=== PATIENT | female | born 1970 | race Caucasian/White ===

== ENCOUNTER 2018-08-25 09:00 | Outpatient (RCR) | payer MEDICARE, MEDICAID, SELFPAY ==
[2018-08-11 09:31] VITALS: BP 101/67; PULSE 88; RESP 16; TEMP 37.6; BMI 20.2
--- NOTE | 2018-08-11 11:25 | PCM.WC.HP ---
(1) Ulcer of right lower extremity with fat layer exposed Status: Acute Current Visit: Yes Code(s): L97.912 - Non-pressure chronic ulcer of unspecified part of right lower leg with fat layer exposed (2) Spina bifida Status: Acute Current Visit: Yes Code(s): Q05.9 - Spina bifida, unspecified (3) Paraplegia Status: Acute Current Visit: Yes Code(s): G82.20 - Paraplegia, unspecified History of Present Illness Date of Service: 08/11/18 Chief Complaint: R lower extremity ulcer. History of Wound: Ms. Mcdaniel is a pleasent 47 year old with PMH as stated above who presents to the wound center witha 3 week history of R Lower extremity ulcer. Unsure about the origin however, it was notd by her child care giver about 3 weeks ago. She has been applying antibiotic ointment daily without significant improvement. She otherwise feels well. Past Medical History Allergies/Adverse Reactions: Allergies No Known Allergies Allergy (Verified 08/11/18 09:55) Home Medications: Ambulatory Orders Medication Instructions Recorded Escitalopram Oxalate [Lexapro] 10 mg PO DAILY 08/11/18 Loratadine [Claritin] 10 mg PO DAILY 08/11/18 Melatonin 2.5 mg PO 08/11/18 busPIRone [Buspar] 10 mg PO DAILY 08/11/18 Smoking Status: Never smoker Review of Systems Constitutional: Denies: Anorexia, Chills, Fever Eyes: Denies: Blurred vision, Pain HEENT: Denies: Difficulty Swallowing Cardiovascular: Denies: Chest Pain, Chest Tightness Respiratory: Denies: Cough, Hemoptysis Gastrointestinal: Denies: Abdominal Pain, Hematemesis, Vomiting Skin: Denies: Jaundice - Physical Exam Vital Signs Temp Pulse Resp BP 99.6 F H 88 16 101/67 08/11/18 09:31 08/11/18 09:31 08/11/18 09:31 08/11/18 09:31 General: Alert, Oriented x3, Cooperative, No apparent distress HEENT: Atraumatic Oral: Moist Mucosa Neck: Supple Lungs: Normal air movement Cardiovascular: Regular rate, Regular Rhythm Abdomen: Soft Extremities: No cyanosis Skin: Ulcer/ Wound Wound Measurements and Assessment WC - Nurse 1 - General Ulcer Measurement Start: 08/11/18 09:26 Freq: Status: Active Protocol: Activity Type Activity Date Activity User E-Sign Co-Sign Detail Recorded Client Recorded Date Recorded By Document 08/11/18 09:31 DL [id number] 08/11/18 09:50 DL 08/11/18 09:31 Wound Center Nurse 1 [Ulcer Assessment] #1 R Post LE -Current Size (cm) - Length 1 -Current Size (cm) - Width 1 -Current Size (cm) - Depth 0.7 -Total Square Cm 1 -Photo Taken Yes -Epithelialization Small 1-33% -Classification - Thickness Full Thickness without Exposed Support Structure -Exudate Amt Small (1-33%) -Exudate Type Serosanguineous -Wound Margin Distinct, Outline Attached -Granulation Amt Small (1-33%) -Granulation Quality Pale [place] -Necrosis Amt Small (1-33%) -Necrotic Tissue Type Adherent Slough -Structure Exposed N/A -Texture (Yudith-wound Skin Appearance) No Abnormality -Moisture (Yudith-wound Skin Appearance No Abnormality ) -Color (Yudith-wound Skin Appearance) No Abnormality -Temperature (Yudith-wound Skin No Abnormality Appearance) (Pt Warm) -Ulcer Cleansing Rinsed/ Irrigated with Saline -Foul Odor after Cleansing No -Anesthetic Used 4% Lidocaine Solution [Edema Assessment] -Right Calf (cm) 23.2 -Right Ankle (cm) 18.8 -Left Calf (cm) 20 -Left Ankle (cm) 19.8 WC - Nurse 2 - General Ulcer CM Notes Start: 08/11/18 09:26 Freq: Status: Active Protocol: Activity Type Activity Date Activity User E-Sign Co-Sign Detail Recorded Client Recorded Date Recorded By Document 08/11/18 10:09 MW [id number] 08/11/18 10:16 MW 08/11/18 10:09 Wound Center Nurse 2 [Procedure/Treatment] #1 R Post LE -Time 10:09 -Correct Patient Yes -Correct Side, Site, Position Yes -Correct Procedure Yes -Procedure Performed Yes -Type of Procedure Debridement -Clinical Debridement Subcutaneous -Post Debridement Size (cm) - Length 1.1 -Post Debridement Size (cm) - Width 1.1 -Post Debridement Size (cm) - Depth 0.7 -Total Square Cm 1.21 -Wound/Ulcer Outcome Not Healed -Ulcer Cleansing Rinsed/ Irrigated with Saline -Foul Odor after Cleansing No -Bioengineered Tissue No -Bleeding Controlled with Pressure -Treatment Response Procedure Tolerated Well [See Physician Procedure note for Specifics] Pain Scale: 0-10 Numeric [Pain] -Is Patient Pain Free? Yes Neurological: Cranial nerves II-XII grossly intact Psych/Mental Status: Normal Affect Debridement Note Post-Debridement Measurements/Treatment WC - Nurse 2 - General Ulcer CM Notes Start: 08/11/18 09:26 Freq: Status: Active Protocol: Activity Type Activity Date Activity User E-Sign Co-Sign Detail Recorded Client Recorded Date Recorded By Document 08/11/18 10:09 MW [id number] 08/11/18 10:16 MW 08/11/18 10:09 Wound Center Nurse 2 #1 R Post LE -Time 10:09 -Correct Patient Yes -Correct Side, Site, Position Yes -Correct Procedure Yes -Procedure Performed Yes -Type of Procedure Debridement -Clinical Debridement Subcutaneous -Post Debridement Size (cm) - Length 1.1 -Post Debridement Size (cm) - Width 1.1 -Post Debridement Size (cm) - Depth 0.7 -Total Square Cm 1.21 -Wound/Ulcer Outcome Not Healed -Ulcer Cleansing Rinsed/ Irrigated with Saline -Foul Odor after Cleansing No -Bioengineered Tissue No -Bleeding Controlled with Pressure -Treatment Response Procedure Tolerated Well Pain Scale: 0-10 Numeric Is Patient Pain Free? Yes Wound debrided: Right lower extremity ( Posterior ) Wound Grade/Stage: Stage II Type of Debridement: Excisional debridement Anesthesia Used: 4% Lidocaine Solution Depth: Down to and including healthy tissue, in the subcutaneous layer Percentage of wound debrided: 100 Instrument Used: 3mm curette Tissue Removed: Slough and devitalized tissue Severity: Fat Layer Exposed Amount of bleeding with debridement: Mild Bleeding Controlled with: Pressure Patient tolerated procedure well Assessment/Plan Active Problems Spina bifida (Acute) Ulcer of right lower extremity with fat layer exposed (Acute) Paraplegia (Acute) Assessment: Right lower extremity ulcer with fat layer exposed, poor healing. Plan: Debridement done as documenetd above, procedure was well tolerated. Cultures taken and blood work also ordered including preablbumin. Pomogran daily with adaptic over top. Increased protein intake recommended. All her questions were answered and she was advised to call with any further concerns. Follow up in 1 week.
--- NOTE | 2018-08-11 11:28 | HP.PCM_ITS ---
(1) Ulcer of right lower extremity with fat layer exposed Status: Acute Current Visit: Yes Code(s): L97.912 - Non-pressure chronic ulcer of unspecified part of right lower leg with fat layer exposed (2) Spina bifida Status: Acute Current Visit: Yes Code(s): Q05.9 - Spina bifida, unspecified (3) Paraplegia Status: Acute Current Visit: Yes Code(s): G82.20 - Paraplegia, unspecified History of Present Illness Date of Service: 08/11/18 Chief Complaint: R lower extremity ulcer. History of Wound: Ms. Mcdaniel is a pleasent 47 year old with PMH as stated above who presents to the wound center witha 3 week history of R Lower extremity ulcer. Unsure about the origin however, it was notd by her physician assistant primary care about 3 weeks ago. She has been applying antibiotic ointment daily without significant improvement. She otherwise feels well. Past Medical History Allergies/Adverse Reactions: Allergies No Known Allergies Allergy (Verified 08/11/18 09:55) Home Medications: Ambulatory Orders Medication Instructions Recorded Escitalopram Oxalate [Lexapro] 10 mg PO DAILY 08/11/18 Loratadine [Claritin] 10 mg PO DAILY 08/11/18 Melatonin 2.5 mg PO 08/11/18 busPIRone [Buspar] 10 mg PO DAILY 08/11/18 Smoking Status: Never smoker Review of Systems Constitutional: Denies: Anorexia, Chills, Fever Eyes: Denies: Blurred vision, Pain HEENT: Denies: Difficulty Swallowing Cardiovascular: Denies: Chest Pain, Chest Tightness Respiratory: Denies: Cough, Hemoptysis Gastrointestinal: Denies: Abdominal Pain, Hematemesis, Vomiting Skin: Denies: Jaundice - Physical Exam Vital Signs Temp Pulse Resp BP 99.6 F H 88 16 101/67 08/11/18 09:31 08/11/18 09:31 08/11/18 09:31 08/11/18 09:31 General: Alert, Oriented x3, Cooperative, No apparent distress HEENT: Atraumatic Oral: Moist Mucosa Neck: Supple Lungs: Normal air movement Cardiovascular: Regular rate, Regular Rhythm Abdomen: Soft Extremities: No cyanosis Skin: Ulcer/ Wound Wound Measurements and Assessment WC - Nurse 1 - General Ulcer Measurement Start: 08/11/18 09:26 Freq: Status: Active Protocol: Activity Type Activity Date Activity User E-Sign Co-Sign Detail Recorded Client Recorded Date Recorded By Document 08/11/18 09:31 DL [id number] 08/11/18 09:50 DL 08/11/18 09:31 Wound Center Nurse 1 [Ulcer Assessment] #1 R Post LE -Current Size (cm) - Length 1 -Current Size (cm) - Width 1 -Current Size (cm) - Depth 0.7 -Total Square Cm 1 -Photo Taken Yes -Epithelialization Small 1-33% -Classification - Thickness Full Thickness without Exposed Support Structure -Exudate Amt Small (1-33%) -Exudate Type Serosanguineous -Wound Margin Distinct, Outline Attached -Granulation Amt Small (1-33%) -Granulation Quality Pale [place] -Necrosis Amt Small (1-33%) -Necrotic Tissue Type Adherent Slough -Structure Exposed N/A -Texture (Yudith-wound Skin Appearance) No Abnormality -Moisture (Yudith-wound Skin Appearance No Abnormality ) -Color (Yudith-wound Skin Appearance) No Abnormality -Temperature (Yudith-wound Skin No Abnormality Appearance) (Pt Warm) -Ulcer Cleansing Rinsed/ Irrigated with Saline -Foul Odor after Cleansing No -Anesthetic Used 4% Lidocaine Solution [Edema Assessment] -Right Calf (cm) 23.2 -Right Ankle (cm) 18.8 -Left Calf (cm) 20 -Left Ankle (cm) 19.8 WC - Nurse 2 - General Ulcer CM Notes Start: 08/11/18 09:26 Freq: Status: Active Protocol: Activity Type Activity Date Activity User E-Sign Co-Sign Detail Recorded Client Recorded Date Recorded By Document 08/11/18 10:09 MW [id number] 08/11/18 10:16 MW 08/11/18 10:09 Wound Center Nurse 2 [Procedure/Treatment] #1 R Post LE -Time 10:09 -Correct Patient Yes -Correct Side, Site, Position Yes -Correct Procedure Yes -Procedure Performed Yes -Type of Procedure Debridement -Clinical Debridement Subcutaneous -Post Debridement Size (cm) - Length 1.1 -Post Debridement Size (cm) - Width 1.1 -Post Debridement Size (cm) - Depth 0.7 -Total Square Cm 1.21 -Wound/Ulcer Outcome Not Healed -Ulcer Cleansing Rinsed/ Irrigated with Saline -Foul Odor after Cleansing No -Bioengineered Tissue No -Bleeding Controlled with Pressure -Treatment Response Procedure Tolerated Well [See Physician Procedure note for Specifics] Pain Scale: 0-10 Numeric [Pain] -Is Patient Pain Free? Yes Neurological: Cranial nerves II-XII grossly intact Psych/Mental Status: Normal Affect Debridement Note Post-Debridement Measurements/Treatment WC - Nurse 2 - General Ulcer CM Notes Start: 08/11/18 09:26 Freq: Status: Active Protocol: Activity Type Activity Date Activity User E-Sign Co-Sign Detail Recorded Client Recorded Date Recorded By Document 08/11/18 10:09 MW [id number] 08/11/18 10:16 MW 08/11/18 10:09 Wound Center Nurse 2 #1 R Post LE -Time 10:09 -Correct Patient Yes -Correct Side, Site, Position Yes -Correct Procedure Yes -Procedure Performed Yes -Type of Procedure Debridement -Clinical Debridement Subcutaneous -Post Debridement Size (cm) - Length 1.1 -Post Debridement Size (cm) - Width 1.1 -Post Debridement Size (cm) - Depth 0.7 -Total Square Cm 1.21 -Wound/Ulcer Outcome Not Healed -Ulcer Cleansing Rinsed/ Irrigated with Saline -Foul Odor after Cleansing No -Bioengineered Tissue No -Bleeding Controlled with Pressure -Treatment Response Procedure Tolerated Well Pain Scale: 0-10 Numeric Is Patient Pain Free? Yes Wound debrided: Right lower extremity ( Posterior ) Wound Grade/Stage: Stage II Type of Debridement: Excisional debridement Anesthesia Used: 4% Lidocaine Solution Depth: Down to and including healthy tissue, in the subcutaneous layer Percentage of wound debrided: 100 Instrument Used: 3mm curette Tissue Removed: Slough and devitalized tissue Severity: Fat Layer Exposed Amount of bleeding with debridement: Mild Bleeding Controlled with: Pressure Patient tolerated procedure well Assessment/Plan Active Problems Spina bifida (Acute) Ulcer of right lower extremity with fat layer exposed (Acute) Paraplegia (Acute) Assessment: Right lower extremity ulcer with fat layer exposed, poor healing. Plan: Debridement done as documenetd above, procedure was well tolerated. Cultures taken and blood work also ordered including preablbumin. Pomogran daily with adaptic over top. Increased protein intake recommended. All her questions were answered and she was advised to call with any further concerns. Follow up in 1 week.
[2018-08-11 11:32] LABS: Absolute Lymphocyte Count 1.28 X10^3/ul (0.83-4.51); Absolute Neutrophil Count 4.8 X10^3/uL (2.0-7.7); Basophil# 0.04 X10^3/uL; Basophil% 0.6 % (0-1); Eosinophil# 0.17 X10^3/uL; Eosinophils% 2.6 % (0-5); Hematocrit 46.6 % (37-47); Hemoglobin 15.1 g/dl (12.0-15.0); Lymphocyte # 1.28 X10^3/ul (4.0); Lymphocyte % 19.2 % (19-41); Mean Corp Hgb Conc 32.4 g/gl (32-36); Mean Corpuscular Volume 92.6 fL (81-99); Mean Platelet Vol. 9.1 fl (6.2-12.0); Monocyte# 0.41 X10^3/uL; Monocyte% 6.2 % (0-10); Neutrophil # 4.75 X10^3/uL (2.7-7.7); Neutrophil % 71.2 % (47-70); Platelet Count 286 K/mm3 (150-450); RBC Distribution Width CV 12.7 % (11.6-14.6); RBC Distribution Width SD 42.4 fl (35.1-43.9); Red Blood Count 5.03 M/mm3 (4.2-5.4); White Blood Count 6.7 K/mm3 (4.4-11.0)
[2018-08-11 11:33] LABS: POSITIVE COUNT NO; POSITIVE DIFFERENTIAL NO; POSITIVE MORPHOLOGY NO
[2018-08-11 12:09] LABS: AST(SGOT) 14 U/L (15-37); Alanine Aminotransfer ALT/SGPT 21 U/L (13-56); Albumin, Serum 3.9 g/dL (3.2-5.0); Alkaline Phosphatase 67 U/L (45-117); Anion Gap 9 (5-15); BUN 11 mg/dL (7-18); Calcium,Total 9.3 mg/dL (8.5-10.1); Chloride 107 mmol/L (98-107); Creatinine, Serum 0.46 mg/dL (0.55-1.02); EST Glomerular Filtration Rate 155 mL/min (>60); Est Glom Filt Rate - Afr Amer 188 mL/min (>60); Estimated Creatinine Clearance 98.94 ml/min; Glucose 73 mg/dL (74-106); Prealbumin 21.1 mg/dL (20.0-40.0); Protein, Total 7.9 g/dL (6.4-8.2); Sodium Level 144 mmol/L (136-145)
[2018-08-25 09:00] VITALS: BP 117/76; PULSE 100; RESP 16; TEMP 36.9; BMI 20.2
--- NOTE | 2018-08-25 09:47 | PCM.WC.PN ---
(1) Ulcer of right lower extremity with fat layer exposed Status: Acute Current Visit: Yes Code(s): L97.912 - Non-pressure chronic ulcer of unspecified part of right lower leg with fat layer exposed (2) Spina bifida Status: Acute Current Visit: Yes Code(s): Q05.9 - Spina bifida, unspecified (3) Paraplegia Status: Acute Current Visit: Yes Code(s): G82.20 - Paraplegia, unspecified Type of Wound Chief Complaint: R lower extremity ulcer. History of Wound: Ms. Mcdaniel is a pleasent 47 year old with PMH as stated above who presents to the wound center witha 3 week history of R Lower extremity ulcer. Unsure about the origin however, it was notd by her home visit field care manager about 3 weeks ago. She has been applying antibiotic ointment daily without significant improvement. She otherwise feels well. Progress of Wound: Stable. No new complaints at this time. - Physical Exam Vital Signs Temp Pulse Resp BP 98.4 F 100 16 117/76 08/25/18 09:00 08/25/18 09:00 08/25/18 09:00 08/25/18 09:00 General: Alert, Oriented x3, Cooperative, No apparent distress HEENT: Atraumatic Oral: Moist Mucosa Neck: Supple Lungs: Normal air movement Abdomen: Soft Extremities: No cyanosis Skin: Ulcer/ Wound Wound Measurements and Assessment WC - Nurse 1 - General Ulcer Measurement Start: 08/11/18 09:26 Freq: Status: Active Protocol: Activity Type Activity Date Activity User E-Sign Co-Sign Detail Recorded Client Recorded Date Recorded By Document 08/25/18 09:00 GRIFFIN [id number] 08/25/18 09:12 GRIFFIN 08/25/18 09:00 Wound Center Nurse 1 [Ulcer Assessment] #1 R Post LE -Combined with other wound No -Current Size (cm) - Length 0.8 -Current Size (cm) - Width 0.9 -Current Size (cm) - Depth 0.7 -Total Square Cm 0.72 -Date of Last Picture (Recall this 08/11/18 field) -Photo Taken No -Epithelialization None Present -Tunneling No -Undermining/Tunneling No -Circular Undermining No -Classification - Thickness Full Thickness without Exposed Support Structure -Exudate Amt Small (1-33%) -Exudate Type Serous -Wound Margin Distinct, Outline Attached -Granulation Amt None Present (0 %) -Granulation Quality N/A -Slough/Fibrin Yes -Necrosis Amt None Present (0 %) -Necrotic Tissue Type Adherent Slough -Structure Exposed None/Limited to Skin Breakdown -Texture (Yudith-wound Skin Appearance) No Abnormality -Moisture (Yudith-wound Skin Appearance No Abnormality ) -Color (Yudith-wound Skin Appearance) No Abnormality -Temperature (Yudith-wound Skin No Abnormality Appearance) (Pt Warm) -Tenderness on Palpation (Yudith-wound No Skin Appearance) -Ulcer Cleansing Rinsed/ Irrigated with Saline -Foul Odor after Cleansing No WC - Nurse 2 - General Ulcer CM Notes Start: 08/11/18 09:26 Freq: Status: Active Protocol: Activity Type Activity Date Activity User E-Sign Co-Sign Detail Recorded Client Recorded Date Recorded By Document 08/25/18 09:40 MW [id number] 08/25/18 09:41 MW 08/25/18 09:40 Wound Center Nurse 2 [Procedure/Treatment] -Time 09:40 -Correct Patient Yes -Correct Side, Site, Position Yes -Correct Procedure Yes -Procedure Performed Yes -Type of Procedure Debridement -Clinical Debridement Subcutaneous -Post Debridement Size (cm) - Length 0.8 -Post Debridement Size (cm) - Width 1.3 -Post Debridement Size (cm) - Depth 0.6 -Total Square Cm 1.04 -Wound/Ulcer Outcome Not Healed -Ulcer Cleansing Rinsed/ Irrigated with Saline -Foul Odor after Cleansing No -Bioengineered Tissue No -Bleeding Controlled with Pressure -Treatment Response Procedure Tolerated Well [See Physician Procedure note for Specifics] Pain Scale: 0-10 Numeric [Pain] -Is Patient Pain Free? Yes Musculoskeletal: No Muscle Wasting Neurological: Cranial nerves II-XII grossly intact Psych/Mental Status: Normal Affect Debridement Note Post-Debridement Measurements/Treatment WC - Nurse 2 - General Ulcer CM Notes Start: 08/11/18 09:26 Freq: Status: Active Protocol: Activity Type Activity Date Activity User E-Sign Co-Sign Detail Recorded Client Recorded Date Recorded By Document 08/11/18 10:09 MW [id number] 08/11/18 10:16 MW Document 08/25/18 09:40 MW [id number] 08/25/18 09:41 MW 08/11/18 08/25/18 10:09 09:40 Wound Center Nurse 2 #1 R Post LE -Time 10:09 09:40 -Correct Patient Yes Yes -Correct Side, Site, Position Yes Yes -Correct Procedure Yes Yes -Procedure Performed Yes Yes -Type of Procedure Debridement Debridement -Clinical Debridement Subcutaneous Subcutaneous -Post Debridement Size (cm) - Length 1.1 0.8 -Post Debridement Size (cm) - Width 1.1 1.3 -Post Debridement Size (cm) - Depth 0.7 0.6 -Total Square Cm 1.21 1.04 -Wound/Ulcer Outcome Not Healed Not Healed -Ulcer Cleansing Rinsed/ Rinsed/ Irrigated with Irrigated with Saline Saline -Foul Odor after Cleansing No No -Bioengineered Tissue No No -Bleeding Controlled with Pressure Pressure -Treatment Response Procedure Procedure Tolerated Well Tolerated Well Pain Scale: 0-10 Numeric Is Patient Pain Free? Yes Yes Wound debrided: Right lower extremity ( Posterior ) Wound Grade/Stage: Stage II Type of Debridement: Excisional debridement Anesthesia Used: 4% Lidocaine Solution Depth: Down to and including healthy tissue, in the subcutaneous layer Percentage of wound debrided: 100 Instrument Used: 3mm curette Tissue Removed: Slough and devitalized tissue Severity: Fat Layer Exposed Amount of bleeding with debridement: Mild Bleeding Controlled with: Pressure Patient tolerated procedure well Assessment/Plan Active Problems Spina bifida (Acute) Ulcer of right lower extremity with fat layer exposed (Acute) Paraplegia (Acute) Assessment: Right lower extremity ulcer with fat layer exposed, poor healing. Plan: Some improvement noted. No new complaints. Debridement done as documenetd above, procedure was well tolerated. Continue pomogran daily with adaptic over top. Increased protein intake recommended. Prealbumin borderline. All her questions were answered and she was advised to call with any further concerns. Follow up in 1 week.
--- NOTE | 2018-08-25 09:52 | PN.PCM_ITS ---
(1) Ulcer of right lower extremity with fat layer exposed Status: Acute Current Visit: Yes Code(s): L97.912 - Non-pressure chronic ulcer of unspecified part of right lower leg with fat layer exposed (2) Spina bifida Status: Acute Current Visit: Yes Code(s): Q05.9 - Spina bifida, unspecified (3) Paraplegia Status: Acute Current Visit: Yes Code(s): G82.20 - Paraplegia, unspecified Type of Wound Chief Complaint: R lower extremity ulcer. History of Wound: Ms. Mcdaniel is a pleasent 47 year old with PMH as stated above who presents to the wound center witha 3 week history of R Lower extremity ulcer. Unsure about the origin however, it was notd by her nursing care attendant about 3 weeks ago. She has been applying antibiotic ointment daily without significant improvement. She otherwise feels well. Progress of Wound: Stable. No new complaints at this time. - Physical Exam Vital Signs Temp Pulse Resp BP 98.4 F 100 16 117/76 08/25/18 09:00 08/25/18 09:00 08/25/18 09:00 08/25/18 09:00 General: Alert, Oriented x3, Cooperative, No apparent distress HEENT: Atraumatic Oral: Moist Mucosa Neck: Supple Lungs: Normal air movement Abdomen: Soft Extremities: No cyanosis Skin: Ulcer/ Wound Wound Measurements and Assessment WC - Nurse 1 - General Ulcer Measurement Start: 08/11/18 09:26 Freq: Status: Active Protocol: Activity Type Activity Date Activity User E-Sign Co-Sign Detail Recorded Client Recorded Date Recorded By Document 08/25/18 09:00 GRIFFIN [id number] 08/25/18 09:12 GRIFFIN 08/25/18 09:00 Wound Center Nurse 1 [Ulcer Assessment] #1 R Post LE -Combined with other wound No -Current Size (cm) - Length 0.8 -Current Size (cm) - Width 0.9 -Current Size (cm) - Depth 0.7 -Total Square Cm 0.72 -Date of Last Picture (Recall this 08/11/18 field) -Photo Taken No -Epithelialization None Present -Tunneling No -Undermining/Tunneling No -Circular Undermining No -Classification - Thickness Full Thickness without Exposed Support Structure -Exudate Amt Small (1-33%) -Exudate Type Serous -Wound Margin Distinct, Outline Attached -Granulation Amt None Present (0 %) -Granulation Quality N/A -Slough/Fibrin Yes -Necrosis Amt None Present (0 %) -Necrotic Tissue Type Adherent Slough -Structure Exposed None/Limited to Skin Breakdown -Texture (Yudith-wound Skin Appearance) No Abnormality -Moisture (Yudith-wound Skin Appearance No Abnormality ) -Color (Yudith-wound Skin Appearance) No Abnormality -Temperature (Yudith-wound Skin No Abnormality Appearance) (Pt Warm) -Tenderness on Palpation (Yudith-wound No Skin Appearance) -Ulcer Cleansing Rinsed/ Irrigated with Saline -Foul Odor after Cleansing No WC - Nurse 2 - General Ulcer CM Notes Start: 08/11/18 09:26 Freq: Status: Active Protocol: Activity Type Activity Date Activity User E-Sign Co-Sign Detail Recorded Client Recorded Date Recorded By Document 08/25/18 09:40 MW [id number] 08/25/18 09:41 MW 08/25/18 09:40 Wound Center Nurse 2 [Procedure/Treatment] -Time 09:40 -Correct Patient Yes -Correct Side, Site, Position Yes -Correct Procedure Yes -Procedure Performed Yes -Type of Procedure Debridement -Clinical Debridement Subcutaneous -Post Debridement Size (cm) - Length 0.8 -Post Debridement Size (cm) - Width 1.3 -Post Debridement Size (cm) - Depth 0.6 -Total Square Cm 1.04 -Wound/Ulcer Outcome Not Healed -Ulcer Cleansing Rinsed/ Irrigated with Saline -Foul Odor after Cleansing No -Bioengineered Tissue No -Bleeding Controlled with Pressure -Treatment Response Procedure Tolerated Well [See Physician Procedure note for Specifics] Pain Scale: 0-10 Numeric [Pain] -Is Patient Pain Free? Yes Musculoskeletal: No Muscle Wasting Neurological: Cranial nerves II-XII grossly intact Psych/Mental Status: Normal Affect Debridement Note Post-Debridement Measurements/Treatment WC - Nurse 2 - General Ulcer CM Notes Start: 08/11/18 09:26 Freq: Status: Active Protocol: Activity Type Activity Date Activity User E-Sign Co-Sign Detail Recorded Client Recorded Date Recorded By Document 08/11/18 10:09 MW [id number] 08/11/18 10:16 MW Document 08/25/18 09:40 MW [id number] 08/25/18 09:41 MW 08/11/18 08/25/18 10:09 09:40 Wound Center Nurse 2 #1 R Post LE -Time 10:09 09:40 -Correct Patient Yes Yes -Correct Side, Site, Position Yes Yes -Correct Procedure Yes Yes -Procedure Performed Yes Yes -Type of Procedure Debridement Debridement -Clinical Debridement Subcutaneous Subcutaneous -Post Debridement Size (cm) - Length 1.1 0.8 -Post Debridement Size (cm) - Width 1.1 1.3 -Post Debridement Size (cm) - Depth 0.7 0.6 -Total Square Cm 1.21 1.04 -Wound/Ulcer Outcome Not Healed Not Healed -Ulcer Cleansing Rinsed/ Rinsed/ Irrigated with Irrigated with Saline Saline -Foul Odor after Cleansing No No -Bioengineered Tissue No No -Bleeding Controlled with Pressure Pressure -Treatment Response Procedure Procedure Tolerated Well Tolerated Well Pain Scale: 0-10 Numeric Is Patient Pain Free? Yes Yes Wound debrided: Right lower extremity ( Posterior ) Wound Grade/Stage: Stage II Type of Debridement: Excisional debridement Anesthesia Used: 4% Lidocaine Solution Depth: Down to and including healthy tissue, in the subcutaneous layer Percentage of wound debrided: 100 Instrument Used: 3mm curette Tissue Removed: Slough and devitalized tissue Severity: Fat Layer Exposed Amount of bleeding with debridement: Mild Bleeding Controlled with: Pressure Patient tolerated procedure well Assessment/Plan Active Problems Spina bifida (Acute) Ulcer of right lower extremity with fat layer exposed (Acute) Paraplegia (Acute) Assessment: Right lower extremity ulcer with fat layer exposed, poor healing. Plan: Some improvement noted. No new complaints. Debridement done as documenetd above, procedure was well tolerated. Continue pomogran daily with adaptic over top. Increased protein intake recommended. Prealbumin borderline. All her questions were answered and she was advised to call with any further concerns. Follow up in 1 week.
== END 2018-08-28 23:59 ==
LOC: WC 09:00
PROVIDERS: Family Provider Family Medicine; PCP Family Medicine; Visit Provider Internal Medicine
DX: L97.812 Non-pressure chronic ulcer of other part of right lower leg with fat layer exposed (principal); Q05.9 Spina bifida, unspecified; G82.20 Paraplegia, unspecified; Z79.899 Other long term (current) drug therapy
CPT/HCPCS: 11042; 36415; 80053; 84134; 85025; 99203; G0463

== ENCOUNTER 2018-09-28 09:30 | Outpatient (RCR) | payer MEDICAID, SELFPAY ==
[2018-08-29 01:32] VITALS: BP 117/76; PULSE 100; RESP 16; TEMP 36.9
[2018-08-31 11:41] VITALS: BP 125/66; PULSE 89; RESP 16; TEMP 36.6
--- NOTE | 2018-08-31 13:06 | PN.PCM_ITS ---
(1) Ulcer of right lower extremity with fat layer exposed Status: Chronic Current Visit: Yes Code(s): L97.912 - Non-pressure chronic ulcer of unspecified part of right lower leg with fat layer exposed (2) Paraplegia Status: Acute Current Visit: No Code(s): G82.20 - Paraplegia, unspecified (3) Spina bifida Status: Acute Current Visit: No Code(s): Q05.9 - Spina bifida, unspecified Type of Wound Chief Complaint: R lower extremity ulcer. History of Wound: Ms. Mcdaniel is a pleasent 47 year old with PMH as stated above who presents to the wound center witha 3 week history of R Lower extremity ulcer. Unsure about the origin however, it was notd by her healthcare network consultant about 3 weeks ago. She has been applying antibiotic ointment daily without significant improvement. She otherwise feels well. Progress of Wound: Stable. No new complaints at this time. - Physical Exam Vital Signs Temp Pulse Resp BP 98 F 89 16 125/66 H 08/31/18 11:41 08/31/18 11:41 08/31/18 11:41 08/31/18 11:41 General: Alert, Oriented x3, Cooperative, No apparent distress HEENT: Atraumatic Oral: Moist Mucosa Neck: Supple Lungs: Normal air movement Abdomen: Non Tender Extremities: No cyanosis Skin: Ulcer/ Wound Wound Measurements and Assessment WC - Nurse 1 - General Ulcer Measurement Start: 08/31/18 11:41 Freq: Status: Active Protocol: Activity Type Activity Date Activity User E-Sign Co-Sign Detail Recorded Client Recorded Date Recorded By Document 08/31/18 11:41 DL [id number] 08/31/18 11:50 DL 08/31/18 11:41 Wound Center Nurse 1 [Ulcer Assessment] #1 R Post LE -Current Size (cm) - Length 1 -Current Size (cm) - Width 1 -Current Size (cm) - Depth 0.5 -Total Square Cm 1 -Photo Taken No -Undermining/Tunneling Starts (O' 12 clock) -Undermining/Tunneling Ends (O'clock) 6 -Maximum Distance (cm) 0.2 -Exudate Amt Small (1-33%) -Exudate Type Serosanguineous -Wound Margin Distinct, Outline Attached -Granulation Amt Small (1-33%) -Granulation Quality [place] -Necrosis Amt Large (67-100%) -Necrotic Tissue Type Adherent Slough -Structure Exposed N/A -Texture (Yudith-wound Skin Appearance) No Abnormality -Moisture (Yudith-wound Skin Appearance No Abnormality ) -Color (Yudtih-wound Skin Appearance) Erythema Rubor -Temperature (Yudith-wound Skin No Abnormality Appearance) (Pt Warm) -Ulcer Cleansing Rinsed/ Irrigated with Saline -Foul Odor after Cleansing No -Anesthetic Used 4% Lidocaine Solution - Nurse 2 - General Ulcer CM Notes Start: 08/31/18 11:41 Freq: Status: Active Protocol: Activity Type Activity Date Activity User E-Sign Co-Sign Detail Recorded Client Recorded Date Recorded By Document 08/31/18 11:56 MW [id number] 08/31/18 11:59 MW 08/31/18 11:56 Wound Center Nurse 2 [Procedure/Treatment] -Time 11:56 -Correct Patient Yes -Correct Side, Site, Position Yes -Correct Procedure Yes -Procedure Performed Yes -Type of Procedure Debridement -Clinical Debridement Subcutaneous -Post Debridement Size (cm) - Length 1.3 -Post Debridement Size (cm) - Width 0.9 -Post Debridement Size (cm) - Depth 0.5 -Total Square Cm 1.17 -Wound/Ulcer Outcome Not Healed -Ulcer Cleansing Rinsed/ Irrigated with Saline -Foul Odor after Cleansing No -Bioengineered Tissue No -Bleeding Controlled with Pressure -Treatment Response Procedure Tolerated Well [See Physician Procedure note for Specifics] Pain Scale: 0-10 Numeric [Pain] -Is Patient Pain Free? Yes Neurological: Cranial nerves II-XII grossly intact Psych/Mental Status: Normal Affect Debridement Note Post-Debridement Measurements/Treatment - Nurse 2 - General Ulcer CM Notes Start: 08/31/18 11:41 Freq: Status: Active Protocol: Activity Type Activity Date Activity User E-Sign Co-Sign Detail Recorded Client Recorded Date Recorded By Document 08/31/18 11:56 MW [id number] 08/31/18 11:59 MW 08/31/18 11:56 Wound Center Nurse 2 #1 R Post LE -Time 11:56 -Correct Patient Yes -Correct Side, Site, Position Yes -Correct Procedure Yes -Procedure Performed Yes -Type of Procedure Debridement -Clinical Debridement Subcutaneous -Post Debridement Size (cm) - Length 1.3 -Post Debridement Size (cm) - Width 0.9 -Post Debridement Size (cm) - Depth 0.5 -Total Square Cm 1.17 -Wound/Ulcer Outcome Not Healed -Ulcer Cleansing Rinsed/ Irrigated with Saline -Foul Odor after Cleansing No -Bioengineered Tissue No -Bleeding Controlled with Pressure -Treatment Response Procedure Tolerated Well Pain Scale: 0-10 Numeric Is Patient Pain Free? Yes Wound debrided: Right lower extremity Wound Grade/Stage: Stage II Type of Debridement: Excisional debridement Anesthesia Used: 4% Lidocaine Solution Depth: Down to and including healthy tissue, in the subcutaneous layer Percentage of wound debrided: 100 Instrument Used: 3mm curette Tissue Removed: Slough and devitalized tissue Severity: Fat Layer Exposed Amount of bleeding with debridement: Mild Bleeding Controlled with: Pressure Patient tolerated procedure well Assessment/Plan Active Problems Ulcer of right lower extremity with fat layer exposed (Chronic) Assessment: Right lower extremity ulcer with fat layer exposed, poor healing. Plan: Stable. No new complaints. Debridement done as documenetd above, procedure was well tolerated. Continue pomogran daily with adaptic over top. Increased protein intake recommended. Prealbumin borderline. All her questions were answered and she was advised to call with any further concerns. Follow up in 1 week. This note was generated with [employer] dictation software. It may contain incorrect words, spelling, and punctuation that were not noted in checking the note before signing.
[2018-09-08 09:13] VITALS: BP 103/71; PULSE 92; RESP 18; TEMP 36.6
--- NOTE | 2018-09-08 10:34 | PCM.WC.PN ---
(1) Ulcer of right lower extremity with fat layer exposed Status: Chronic Current Visit: Yes Code(s): L97.912 - Non-pressure chronic ulcer of unspecified part of right lower leg with fat layer exposed (2) Paraplegia Status: Acute Current Visit: No Code(s): G82.20 - Paraplegia, unspecified (3) Spina bifida Status: Acute Current Visit: No Code(s): Q05.9 - Spina bifida, unspecified Type of Wound Date of Service: 09/08/18 Chief Complaint: R lower extremity ulcer. History of Wound: Ms. Mcdaniel is a pleasent 47 year old with PMH as stated above who presents to the wound center witha 3 week history of R Lower extremity ulcer. Unsure about the origin however, it was notd by her anesthesiologist and critical care about 3 weeks ago. She has been applying antibiotic ointment daily without significant improvement. She otherwise feels well. Progress of Wound: Denies any complaints at this time. States that dressing has been done as recommended. They report no concerns. - Physical Exam Vital Signs Temp Pulse Resp BP 97.8 F 92 18 103/71 09/08/18 09:13 09/08/18 09:13 09/08/18 09:13 09/08/18 09:13 General: Alert, Oriented x3, Cooperative, No apparent distress HEENT: Atraumatic Oral: Moist Mucosa Neck: Supple Lungs: Normal air movement Extremities: No edema Skin: Ulcer/ Wound Wound Measurements and Assessment WC - Nurse 1 - General Ulcer Measurement Start: 08/31/18 11:41 Freq: Status: Active Protocol: Activity Type Activity Date Activity User E-Sign Co-Sign Detail Recorded Client Recorded Date Recorded By Document 09/08/18 09:13 DL [id number] 09/08/18 09:18 DL 09/08/18 09:13 Wound Center Nurse 1 [Ulcer Assessment] #1 R Post LE -Current Size (cm) - Length 1 -Current Size (cm) - Width 1.2 -Current Size (cm) - Depth 0.4 -Total Square Cm 1.2 -Photo Taken No -Tunneling No -Undermining/Tunneling No -Circular Undermining No -Exudate Amt Small (1-33%) -Exudate Type Serosanguineous -Wound Margin Distinct, Outline Attached -Granulation Amt Small (1-33%) -Granulation [place] -Necrosis Amt Medium (34-66%) -Necrotic Tissue Type Eschar -Structure Exposed N/A -Texture (Yudith-wound Skin Appearance) Assessed -Moisture (Yudith-wound Skin Appearance Assessed ) -Color (Yudith-wound Skin Appearance) Assessed Erythema -Temperature (Yudith-wound Skin No Abnormality Appearance) (Pt Warm) -Tenderness on Palpation (Yudith-wound No Skin Appearance) -Ulcer Cleansing Rinsed/ Irrigated with Saline -Foul Odor after Cleansing No -Anesthetic Used 4% Lidocaine Solution - Nurse 2 - General Ulcer CM Notes Start: 08/31/18 11:41 Freq: Status: Active Protocol: Activity Type Activity Date Activity User E-Sign Co-Sign Detail Recorded Client Recorded Date Recorded By Document 09/08/18 10:04 MW [id number] 09/08/18 10:09 MW 09/08/18 10:04 Wound Center Nurse 2 [Procedure/Treatment] -Time 10:04 -Correct Patient Yes -Correct Side, Site, Position Yes -Correct Procedure Yes -Procedure Performed Yes -Type of Procedure Debridement -Clinical Debridement Subcutaneous -Post Debridement Size (cm) - Length 1.1 -Post Debridement Size (cm) - Width 1.3 -Post Debridement Size (cm) - Depth 0.5 -Total Square Cm 1.43 -Wound/Ulcer Outcome Not Healed -Ulcer Cleansing Rinsed/ Irrigated with Saline -Foul Odor after Cleansing No -Bioengineered Tissue No -Bleeding Controlled with Pressure -Treatment Response Procedure Tolerated Well [See Physician Procedure note for Specifics] Pain Scale: 0-10 Numeric [Pain] -Is Patient Pain Free? Yes Musculoskeletal: No Muscle Wasting Neurological: Cranial nerves II-XII grossly intact Psych/Mental Status: Normal Affect Debridement Note Post-Debridement Measurements/Treatment - Nurse 2 - General Ulcer CM Notes Start: 08/31/18 11:41 Freq: Status: Active Protocol: Activity Type Activity Date Activity User E-Sign Co-Sign Detail Recorded Client Recorded Date Recorded By Document 08/31/18 11:56 MW [id number] 08/31/18 11:59 MW Document 09/08/18 10:04 MW [id number] 09/08/18 10:09 MW 08/31/18 09/08/18 11:56 10:04 Wound Center Nurse 2 #1 R Post LE -Time 11:56 10:04 -Correct Patient Yes Yes -Correct Side, Site, Position Yes Yes -Correct Procedure Yes Yes -Procedure Performed Yes Yes -Type of Procedure Debridement Debridement -Clinical Debridement Subcutaneous Subcutaneous -Post Debridement Size (cm) - Length 1.3 1.1 -Post Debridement Size (cm) - Width 0.9 1.3 -Post Debridement Size (cm) - Depth 0.5 0.5 -Total Square Cm 1.17 1.43 -Wound/Ulcer Outcome Not Healed Not Healed -Ulcer Cleansing Rinsed/ Rinsed/ Irrigated with Irrigated with Saline Saline -Foul Odor after Cleansing No No -Bioengineered Tissue No No -Bleeding Controlled with Pressure Pressure -Treatment Response Procedure Procedure Tolerated Well Tolerated Well Pain Scale: 0-10 Numeric Is Patient Pain Free? Yes Yes Wound debrided: Right lower extremity Wound Grade/Stage: Stage III Type of Debridement: Excisional debridement Anesthesia Used: 4% Lidocaine Solution Depth: Down to and including healthy tissue, in the subcutaneous layer Percentage of wound debrided: 100 Instrument Used: 7mm curette Tissue Removed: Slough and devitalized tissue Severity: Fat Layer Exposed Amount of bleeding with debridement: Mild Bleeding Controlled with: Pressure Patient tolerated procedure well Assessment/Plan Active Problems Ulcer of right lower extremity with fat layer exposed (Chronic) Assessment: Right lower extremity ulcer with fat layer exposed, poor healing. Plan: There appears to be new periwound eschar formation. No significant improvement noted in the past week. No other obvious signs or concerns for infection. Debridement done as documented above, procedure was well-tolerated. Continue pomogran daily with adaptic over top. Also advised to apply Promogran over the surface of the wound/ulcer. Will get vascular studies. Increased protein intake recommended. Prealbumin borderline. All her questions were answered and she was advised to call with any further concerns. Follow up in 2 weeks with me and 1 week for a courtesy visit with Dr. English. This note was generated with [employer] dictation software. It may contain incorrect words, spelling, and punctuation that were not noted in checking the note before signing.
--- NOTE | 2018-09-08 10:37 | PN.PCM_ITS ---
(1) Ulcer of right lower extremity with fat layer exposed Status: Chronic Current Visit: Yes Code(s): L97.912 - Non-pressure chronic ulcer of unspecified part of right lower leg with fat layer exposed (2) Paraplegia Status: Acute Current Visit: No Code(s): G82.20 - Paraplegia, unspecified (3) Spina bifida Status: Acute Current Visit: No Code(s): Q05.9 - Spina bifida, unspecified Type of Wound Date of Service: 09/08/18 Chief Complaint: R lower extremity ulcer. History of Wound: Ms. Mcdaniel is a pleasent 47 year old with PMH as stated above who presents to the wound center witha 3 week history of R Lower extremity ulcer. Unsure about the origin however, it was notd by her plant care worker about 3 weeks ago. She has been applying antibiotic ointment daily without significant improvement. She otherwise feels well. Progress of Wound: Denies any complaints at this time. States that dressing has been done as recommended. They report no concerns. - Physical Exam Vital Signs Temp Pulse Resp BP 97.8 F 92 18 103/71 09/08/18 09:13 09/08/18 09:13 09/08/18 09:13 09/08/18 09:13 General: Alert, Oriented x3, Cooperative, No apparent distress HEENT: Atraumatic Oral: Moist Mucosa Neck: Supple Lungs: Normal air movement Extremities: No edema Skin: Ulcer/ Wound Wound Measurements and Assessment WC - Nurse 1 - General Ulcer Measurement Start: 08/31/18 11:41 Freq: Status: Active Protocol: Activity Type Activity Date Activity User E-Sign Co-Sign Detail Recorded Client Recorded Date Recorded By Document 09/08/18 09:13 DL [id number] 09/08/18 09:18 DL 09/08/18 09:13 Wound Center Nurse 1 [Ulcer Assessment] #1 R Post LE -Current Size (cm) - Length 1 -Current Size (cm) - Width 1.2 -Current Size (cm) - Depth 0.4 -Total Square Cm 1.2 -Photo Taken No -Tunneling No -Undermining/Tunneling No -Circular Undermining No -Exudate Amt Small (1-33%) -Exudate Type Serosanguineous -Wound Margin Distinct, Outline Attached -Granulation Amt Small (1-33%) -Granulation Quality [place] -Necrosis Amt Medium (34-66%) -Necrotic Tissue Type Eschar -Structure Exposed N/A -Texture (Yudith-wound Skin Appearance) Assessed -Moisture (Yudith-wound Skin Appearance Assessed ) -Color (Yudith-wound Skin Appearance) Assessed Erythema -Temperature (Yudith-wound Skin No Abnormality Appearance) (Pt Warm) -Tenderness on Palpation (Yudith-wound No Skin Appearance) -Ulcer Cleansing Rinsed/ Irrigated with Saline -Foul Odor after Cleansing No -Anesthetic Used 4% Lidocaine Solution - Nurse 2 - General Ulcer CM Notes Start: 08/31/18 11:41 Freq: Status: Active Protocol: Activity Type Activity Date Activity User E-Sign Co-Sign Detail Recorded Client Recorded Date Recorded By Document 09/08/18 10:04 MW [id number] 09/08/18 10:09 MW 09/08/18 10:04 Wound Center Nurse 2 [Procedure/Treatment] -Time 10:04 -Correct Patient Yes -Correct Side, Site, Position Yes -Correct Procedure Yes -Procedure Performed Yes -Type of Procedure Debridement -Clinical Debridement Subcutaneous -Post Debridement Size (cm) - Length 1.1 -Post Debridement Size (cm) - Width 1.3 -Post Debridement Size (cm) - Depth 0.5 -Total Square Cm 1.43 -Wound/Ulcer Outcome Not Healed -Ulcer Cleansing Rinsed/ Irrigated with Saline -Foul Odor after Cleansing No -Bioengineered Tissue No -Bleeding Controlled with Pressure -Treatment Response Procedure Tolerated Well [See Physician Procedure note for Specifics] Pain Scale: 0-10 Numeric [Pain] -Is Patient Pain Free? Yes Musculoskeletal: No Muscle Wasting Neurological: Cranial nerves II-XII grossly intact Psych/Mental Status: Normal Affect Debridement Note Post-Debridement Measurements/Treatment - Nurse 2 - General Ulcer CM Notes Start: 08/31/18 11:41 Freq: Status: Active Protocol: Activity Type Activity Date Activity User E-Sign Co-Sign Detail Recorded Client Recorded Date Recorded By Document 08/31/18 11:56 MW [id number] 08/31/18 11:59 MW Document 09/08/18 10:04 MW [id number] 09/08/18 10:09 MW 08/31/18 09/08/18 11:56 10:04 Wound Center Nurse 2 #1 R Post LE -Time 11:56 10:04 -Correct Patient Yes Yes -Correct Side, Site, Position Yes Yes -Correct Procedure Yes Yes -Procedure Performed Yes Yes -Type of Procedure Debridement Debridement -Clinical Debridement Subcutaneous Subcutaneous -Post Debridement Size (cm) - Length 1.3 1.1 -Post Debridement Size (cm) - Width 0.9 1.3 -Post Debridement Size (cm) - Depth 0.5 0.5 -Total Square Cm 1.17 1.43 -Wound/Ulcer Outcome Not Healed Not Healed -Ulcer Cleansing Rinsed/ Rinsed/ Irrigated with Irrigated with Saline Saline -Foul Odor after Cleansing No No -Bioengineered Tissue No No -Bleeding Controlled with Pressure Pressure -Treatment Response Procedure Procedure Tolerated Well Tolerated Well Pain Scale: 0-10 Numeric Is Patient Pain Free? Yes Yes Wound debrided: Right lower extremity Wound Grade/Stage: Stage III Type of Debridement: Excisional debridement Anesthesia Used: 4% Lidocaine Solution Depth: Down to and including healthy tissue, in the subcutaneous layer Percentage of wound debrided: 100 Instrument Used: 7mm curette Tissue Removed: Slough and devitalized tissue Severity: Fat Layer Exposed Amount of bleeding with debridement: Mild Bleeding Controlled with: Pressure Patient tolerated procedure well Assessment/Plan Active Problems Ulcer of right lower extremity with fat layer exposed (Chronic) Assessment: Right lower extremity ulcer with fat layer exposed, poor healing. Plan: There appears to be new periwound eschar formation. No significant improvement noted in the past week. No other obvious signs or concerns for infection. Debridement done as documented above, procedure was well-tolerated. Continue pomogran daily with adaptic over top. Also advised to apply Promogran over the surface of the wound/ulcer. Will get vascular studies. Increased protein intake recommended. Prealbumin borderline. All her questions were answered and she was advised to call with any further concerns. Follow up in 2 weeks with me and 1 week for a courtesy visit with Dr. English. This note was generated with [employer] dictation software. It may contain incorrect words, spelling, and punctuation that were not noted in checking the note before signing.
[2018-09-16 15:52] VITALS: BP 104/66; PULSE 88; RESP 18; TEMP 36.2
--- NOTE | 2018-09-16 17:28 | PCM.WC.PN ---
(1) Ulcer of right lower extremity with fat layer exposed Status: Chronic Current Visit: Yes Code(s): L97.912 - Non-pressure chronic ulcer of unspecified part of right lower leg with fat layer exposed (2) Paraplegia Status: Chronic Current Visit: Yes Code(s): G82.20 - Paraplegia, unspecified (3) Spina bifida Status: Chronic Current Visit: Yes Qualifiers: Spinal region: unspecified Code(s): Q05.9 - Spina bifida, unspecified Type of Wound Date of Service: 09/16/18 Chief Complaint: R lower extremity ulcer. History of Wound: Ms. Mcdaniel is a pleasent 47 year old with PMH as stated above who presents to the wound center with history of R Lower extremity ulcer. Unsure about the origin however, it was noted by her respiratory care instructor in July 2018. She has been applying antibiotic ointment daily without significant improvement. She otherwise feels well. Progress of Wound: Yun is being seen as a courtesy visit for Dr. Thao. She denies any new complaints at this time. She is accompanied by her caregiver and they report that there has been very little drainage and they have not had any difficulty with dressing changes. Denies odor, fever, chills, increased drainage or erythema. - Physical Exam Vital Signs Temp Pulse Resp BP 97.2 F L 88 18 104/66 09/16/18 15:52 09/16/18 15:52 09/16/18 15:52 09/16/18 15:52 General: Alert, Oriented x3, Cooperative, No apparent distress HEENT: Atraumatic, Normocephalic Oral: Moist Mucosa Neck: Supple Lungs: Clear to auscultation, Normal air movement Cardiovascular: Regular rate, Regular Rhythm Extremities: Edema Skin: Ulcer/ Wound Wound Measurements and Assessment WC - Nurse 1 - General Ulcer Measurement Start: 08/31/18 11:41 Freq: Status: Active Protocol: Activity Type Activity Date Activity User E-Sign Co-Sign Detail Recorded Client Recorded Date Recorded By Document 09/16/18 15:52 DL [id number] 09/16/18 15:58 DL 09/16/18 15:52 Wound Center Nurse 1 [Ulcer Assessment] #1 R Post LE -Current Size (cm) - Length 1.1 -Current Size (cm) - Width 1.6 -Current Size (cm) - Depth 0.2 -Total Square Cm 1.76 -Photo Taken No -Exudate Amt Small (1-33%) -Exudate Type Serosanguineous -Wound Margin Thickened & Rolled Under -Granulation Amt Medium (34-66%) -Granulation Quality [place] -Necrosis Amt Medium (34-66%) -Necrotic Tissue Type Adherent Slough -Structure Exposed N/A -Texture (Yudith-wound Skin Appearance) Scarring -Moisture (Yudith-wound Skin Appearance No Abnormality ) -Color (Yudith-wound Skin Appearance) Rubor -Temperature (Yudith-wound Skin No Abnormality Appearance) (Pt Warm) -Tenderness on Palpation (Yudith-wound No Skin Appearance) -Ulcer Cleansing Rinsed/ Irrigated with Saline -Foul Odor after Cleansing No -Anesthetic Used 4% Lidocaine Solution - Nurse 2 - General Ulcer CM Notes Start: 08/31/18 11:41 Freq: Status: Active Protocol: Activity Type Activity Date Activity User E-Sign Co-Sign Detail Recorded Client Recorded Date Recorded By Document 09/16/18 16:25 CS [id number] 09/16/18 16:31 09/16/18 16:25 Wound Center Nurse 2 [Procedure/Treatment] -Time 16:27 -Correct Patient Yes -Correct Side, Site, Position Yes -Correct Procedure Yes -Procedure Performed Yes -Type of Procedure Debridement -Clinical Debridement Subcutaneous -Post Debridement Size (cm) - Length 1.5 -Post Debridement Size (cm) - Width 1.5 -Post Debridement Size (cm) - Depth 0.3 -Total Square Cm 2.25 -Wound/Ulcer Outcome Not Healed -Ulcer Cleansing Not Cleansed -Foul Odor after Cleansing No -Bioengineered Tissue No -Bleeding Controlled with Pressure -Treatment Response Procedure Tolerated Well [See Physician Procedure note for Specifics] Pain Scale: 0-10 Numeric [Pain] -Is Patient Pain Free? Yes Psych/Mental Status: Normal Affect, Appropriate Debridement Note Post-Debridement Measurements/Treatment - Nurse 2 - General Ulcer CM Notes Start: 08/31/18 11:41 Freq: Status: Active Protocol: Activity Type Activity Date Activity User E-Sign Co-Sign Detail Recorded Client Recorded Date Recorded By Document 08/31/18 11:56 MW [id number] 08/31/18 11:59 MW Document 10/11/18 10:04 MW [id number] 09/08/18 10:09 MW Document 09/16/18 16:25 CS [id number] 09/16/18 16:31 CS 08/31/18 09/08/18 09/16/18 11:56 10:04 16:25 Wound Center Nurse 2 #1 R Post LE -Time 11:56 10:04 16:27 -Correct Patient Yes Yes Yes -Correct Side, Site, Position Yes Yes Yes -Correct Procedure Yes Yes Yes -Procedure Performed Yes Yes Yes -Type of Procedure Debridement Debridement Debridement -Clinical Debridement Subcutaneous Subcutaneous Subcutaneous -Post Debridement Size (cm) - Length 1.3 1.1 1.5 -Post Debridement Size (cm) - Width 0.9 1.3 1.5 -Post Debridement Size (cm) - Depth 0.5 0.5 0.3 -Total Square Cm 1.17 1.43 2.25 -Wound/Ulcer Outcome Not Healed Not Healed Not Healed -Ulcer Cleansing Rinsed/ Rinsed/ Not Cleansed Irrigated with Irrigated with Saline Saline -Foul Odor after Cleansing No No No -Bioengineered Tissue No No No -Bleeding Controlled with Pressure Pressure Pressure -Treatment Response Procedure Procedure Procedure Tolerated Well Tolerated Well Tolerated Well Pain Scale: 0-10 Numeric Is Patient Pain Free? Yes Yes Yes Wound debrided: right posterior LE Laterality: Right Type of Debridement: Excisional debridement Anesthesia Used: 4% Lidocaine Solution Depth: Down to and including healthy tissue, in the subcutaneous layer Percentage of wound debrided: 100 Instrument Used: 5mm curette, #15 blade, Forceps Tissue Removed: yellow slough, devitalized tissue Severity: Fat Layer Exposed Amount of bleeding with debridement: Mild Bleeding Controlled with: Compression and gauze Patient tolerated procedure well Assessment/Plan Active Problems Spina bifida (Chronic) Ulcer of right lower extremity with fat layer exposed (Chronic) Paraplegia (Chronic) Assessment: Right lower extremity ulcer with fat layer exposed, poor healing. Plan: The wound bed appears healthy and free of infection. There was a small amount of thick fibrous slough that was debrided with scalpel and forceps. No significant improvement noted in the past week. No other obvious signs or concerns for infection. Debridement done as documented above, procedure was well-tolerated. Continue promogran daily with adaptic over top. Also advised to apply Promogran over the surface of the wound/ulcer. Vascular studies are scheduled. Increased protein intake recommended. Prealbumin borderline. All her questions were answered and she was advised to call with any further concerns. Follow up in [address] Thao. This note was generated with [employer] software. It may contain incorrect words, spelling, and punctuation that were not noted in checking the note before signing.
--- NOTE | 2018-09-16 17:32 | PN.PCM_ITS ---
(1) Ulcer of right lower extremity with fat layer exposed Status: Chronic Current Visit: Yes Code(s): L97.912 - Non-pressure chronic ulcer of unspecified part of right lower leg with fat layer exposed (2) Paraplegia Status: Chronic Current Visit: Yes Code(s): G82.20 - Paraplegia, unspecified (3) Spina bifida Status: Chronic Current Visit: Yes Qualifiers: Spinal region: unspecified Code(s): Q05.9 - Spina bifida, unspecified Type of Wound Date of Service: 09/16/18 Chief Complaint: R lower extremity ulcer. History of Wound: Ms. Mcdaniel is a pleasent 47 year old with PMH as stated above who presents to the wound center with history of R Lower extremity ulcer. Unsure about the origin however, it was noted by her auto care center manager in July 2018. She has been applying antibiotic ointment daily without significant improvement. She otherwise feels well. Progress of Wound: Yun is being seen as a courtesy visit for Dr. Thao. She denies any new complaints at this time. She is accompanied by her caregiver and they report that there has been very little drainage and they have not had any difficulty with dressing changes. Denies odor, fever, chills, increased drainage or erythema. - Physical Exam Vital Signs Temp Pulse Resp BP 97.2 F L 88 18 104/66 09/16/18 15:52 09/16/18 15:52 09/16/18 15:52 09/16/18 15:52 General: Alert, Oriented x3, Cooperative, No apparent distress HEENT: Atraumatic, Normocephalic Oral: Moist Mucosa Neck: Supple Lungs: Clear to auscultation, Normal air movement Cardiovascular: Regular rate, Regular Rhythm Extremities: Edema Skin: Ulcer/ Wound Wound Measurements and Assessment WC - Nurse 1 - General Ulcer Measurement Start: 08/31/18 11:41 Freq: Status: Active Protocol: Activity Type Activity Date Activity User E-Sign Co-Sign Detail Recorded Client Recorded Date Recorded By Document 09/16/18 15:52 DL [id number] 09/16/18 15:58 DL 09/16/18 15:52 Wound Center Nurse 1 [Ulcer Assessment] #1 R Post LE -Current Size (cm) - Length 1.1 -Current Size (cm) - Width 1.6 -Current Size (cm) - Depth 0.2 -Total Square Cm 1.76 -Photo Taken No -Exudate Amt Small (1-33%) -Exudate Type Serosanguineous -Wound Margin Thickened & Rolled Under -Granulation Amt Medium (34-66%) -Granulation Quality [place] -Necrosis Amt Medium (34-66%) -Necrotic Tissue Type Adherent Slough -Structure Exposed N/A -Texture (Yudith-wound Skin Appearance) Scarring -Moisture (Yudith-wound Skin Appearance No Abnormality ) -Color (Yudith-wound Skin Appearance) Rubor -Temperature (Yudith-wound Skin No Abnormality Appearance) (Pt Warm) -Tenderness on Palpation (Yudith-wound No Skin Appearance) -Ulcer Cleansing Rinsed/ Irrigated with Saline -Foul Odor after Cleansing No -Anesthetic Used 4% Lidocaine Solution - Nurse 2 - General Ulcer CM Notes Start: 08/31/18 11:41 Freq: Status: Active Protocol: Activity Type Activity Date Activity User E-Sign Co-Sign Detail Recorded Client Recorded Date Recorded By Document 09/16/18 16:25 CS [id number] 09/16/18 16:31 09/16/18 16:25 Wound Center Nurse 2 [Procedure/Treatment] -Time 16:27 -Correct Patient Yes -Correct Side, Site, Position Yes -Correct Procedure Yes -Procedure Performed Yes -Type of Procedure Debridement -Clinical Debridement Subcutaneous -Post Debridement Size (cm) - Length 1.5 -Post Debridement Size (cm) - Width 1.5 -Post Debridement Size (cm) - Depth 0.3 -Total Square Cm 2.25 -Wound/Ulcer Outcome Not Healed -Ulcer Cleansing Not Cleansed -Foul Odor after Cleansing No -Bioengineered Tissue No -Bleeding Controlled with Pressure -Treatment Response Procedure Tolerated Well [See Physician Procedure note for Specifics] Pain Scale: 0-10 Numeric [Pain] -Is Patient Pain Free? Yes Psych/Mental Status: Normal Affect, Appropriate Debridement Note Post-Debridement Measurements/Treatment - Nurse 2 - General Ulcer CM Notes Start: 08/31/18 11:41 Freq: Status: Active Protocol: Activity Type Activity Date Activity User E-Sign Co-Sign Detail Recorded Client Recorded Date Recorded By Document 08/31/18 11:56 MW [id number] 08/31/18 11:59 MW Document 10/11/18 10:04 MW [id number] 09/08/18 10:09 MW Document 09/16/18 16:25 CS [id number] 09/16/18 16:31 CS 08/31/18 09/08/18 09/16/18 11:56 10:04 16:25 Wound Center Nurse 2 #1 R Post LE -Time 11:56 10:04 16:27 -Correct Patient Yes Yes Yes -Correct Side, Site, Position Yes Yes Yes -Correct Procedure Yes Yes Yes -Procedure Performed Yes Yes Yes -Type of Procedure Debridement Debridement Debridement -Clinical Debridement Subcutaneous Subcutaneous Subcutaneous -Post Debridement Size (cm) - Length 1.3 1.1 1.5 -Post Debridement Size (cm) - Width 0.9 1.3 1.5 -Post Debridement Size (cm) - Depth 0.5 0.5 0.3 -Total Square Cm 1.17 1.43 2.25 -Wound/Ulcer Outcome Not Healed Not Healed Not Healed -Ulcer Cleansing Rinsed/ Rinsed/ Not Cleansed Irrigated with Irrigated with Saline Saline -Foul Odor after Cleansing No No No -Bioengineered Tissue No No No -Bleeding Controlled with Pressure Pressure Pressure -Treatment Response Procedure Procedure Procedure Tolerated Well Tolerated Well Tolerated Well Pain Scale: 0-10 Numeric Is Patient Pain Free? Yes Yes Yes Wound debrided: right posterior LE Laterality: Right Type of Debridement: Excisional debridement Anesthesia Used: 4% Lidocaine Solution Depth: Down to and including healthy tissue, in the subcutaneous layer Percentage of wound debrided: 100 Instrument Used: 5mm curette, #15 blade, Forceps Tissue Removed: yellow slough, devitalized tissue Severity: Fat Layer Exposed Amount of bleeding with debridement: Mild Bleeding Controlled with: Compression and gauze Patient tolerated procedure well Assessment/Plan Active Problems Spina bifida (Chronic) Ulcer of right lower extremity with fat layer exposed (Chronic) Paraplegia (Chronic) Assessment: Right lower extremity ulcer with fat layer exposed, poor healing. Plan: The wound bed appears healthy and free of infection. There was a small amount of thick fibrous slough that was debrided with scalpel and forceps. No significant improvement noted in the past week. No other obvious signs or concerns for infection. Debridement done as documented above, procedure was well-tolerated. Continue promogran daily with adaptic over top. Also advised to apply Promogran over the surface of the wound/ulcer. Vascular studies are scheduled. Increased protein intake recommended. Prealbumin borderline. All her questions were answered and she was advised to call with any further concerns. Follow up in [address] Thao. This note was generated with [employer] software. It may contain incorrect words, spelling, and punctuation that were not noted in checking the note before signing.
--- NOTE | 2018-09-22 19:20 | LEAS ---
Arterial Study - Arterial Study Arterial Study: This is a 47-year-old female with a history of peripheral arterial occlusive disease. She is brought to the noninvasive vascular laboratory at this time for the purpose of bilateral noninvasive lower extremity arterial assessment. Doppler signal assessment was used to evaluate the pulses at ankle level bilaterally. The posterior tibial and dorsalis pedis pulses were triphasic bilaterally. Segmental limb pressures were obtained at ankle level bilaterally. The right ankle pressure, as determined by posterior tibial pulse, was measured at 122 mmHg. The right ankle pressure, as determined by dorsalis pedis pulse, was measured at 115 mmHg. The left ankle pressure, as determined by posterior tibial pulse, was measured at 112 mmHg. The left ankle pressure, as determined by dorsalis pedis pulse, was measured at 115 mmHg. Pulse?volume recordings were obtained bilaterally and segmentally. Waveform amplitudes appeared to be satisfactory at all levels bilaterally, including low thigh, calf, ankle, and digital levels. Resting ankle?brachial indices were calculated bilaterally. The resting right ankle?brachial index was calculated to be 1.15. The resting left ankle?brachial index was calculated to be 1.08. Impression: Based upon the findings of this resting noninvasive lower extremity arterial study, there is no evidence of significant atherosclerotic peripheral arterial occlusive disease in the lower extremities bilaterally. Triphasic waveforms were noted at ankle level bilaterally. Resting ankle?brachial indices were bilaterally normal. In summary, this represents a normal resting noninvasive lower extremity arterial study bilaterally.
[2018-09-28 09:28] VITALS: BP 111/70; PULSE 86; RESP 18; TEMP 37.4
--- NOTE | 2018-09-28 09:50 | PCM.WC.PN ---
(1) Ulcer of right lower extremity with fat layer exposed Status: Chronic Current Visit: Yes Code(s): L97.912 - Non-pressure chronic ulcer of unspecified part of right lower leg with fat layer exposed (2) Paraplegia Status: Chronic Current Visit: Yes Code(s): G82.20 - Paraplegia, unspecified (3) Spina bifida Status: Chronic Current Visit: Yes Qualifiers: Spinal region: unspecified Code(s): Q05.9 - Spina bifida, unspecified Type of Wound Chief Complaint: R lower extremity ulcer. History of Wound: Ms. Mcdaniel is a pleasent 47 year old with PMH as stated above who presents to the wound center with history of R Lower extremity ulcer. Unsure about the origin however, it was noted by her day care supervisor in July 2018. She has been applying antibiotic ointment daily without significant improvement. She otherwise feels well. Progress of Wound: Stable. No new complaints at this time. - Physical Exam Vital Signs Temp Pulse Resp BP 99.3 F H 86 18 111/70 09/28/18 09:28 09/28/18 09:28 09/28/18 09:28 09/28/18 09:28 General: Alert, Oriented x3, Cooperative, No apparent distress HEENT: Atraumatic Oral: Moist Mucosa Neck: Supple Lungs: Normal air movement Abdomen: Soft, Non Tender Extremities: No edema Wound Measurements and Assessment WC - Nurse 1 - General Ulcer Measurement Start: 08/31/18 11:41 Freq: Status: Active Protocol: Activity Type Activity Date Activity User E-Sign Co-Sign Detail Recorded Client Recorded Date Recorded By Document 09/28/18 09:28 DL [id number] 09/28/18 09:38 DL 09/28/18 09:28 Wound Center Nurse 1 [Ulcer Assessment] #1 R Post LE -Current Size (cm) - Length 1.3 -Current Size (cm) - Width 1 -Current Size (cm) - Depth 0.2 -Total Square Cm 1.3 -Photo Taken Yes -Exudate Amt Small (1-33%) -Exudate Type Serosanguineous -Wound Margin Distinct, Outline Attached -Granulation Amt Small (1-33%) -Granulation Quality [place] -Necrosis Amt Large (67-100%) -Necrotic Tissue Type Adherent Slough -Structure Exposed N/A -Texture (Yudith-wound Skin Appearance) Scarring -Moisture (Yudith-wound Skin Appearance No Abnormality ) -Color (Yudith-wound Skin Appearance) No Abnormality -Temperature (Yudith-wound Skin No Abnormality Appearance) (Pt Warm) -Ulcer Cleansing Rinsed/ Irrigated with Saline -Foul Odor after Cleansing No -Anesthetic Used 4% Lidocaine Solution WC - Nurse 2 - General Ulcer CM Notes Start: 08/31/18 11:41 Freq: Status: Active Protocol: Activity Type Activity Date Activity User E-Sign Co-Sign Detail Recorded Client Recorded Date Recorded By Document 09/28/18 09:45 MW [id number] 09/28/18 09:48 MW 09/28/18 09:45 Wound Center Nurse 2 [Procedure/Treatment] -Time 09:45 -Correct Patient Yes -Correct Side, Site, Position Yes -Correct Procedure Yes -Procedure Performed Yes -Type of Procedure Debridement -Clinical Debridement Subcutaneous -Post Debridement Size (cm) - Length 1.2 -Post Debridement Size (cm) - Width 1.0 -Post Debridement Size (cm) - Depth 0.2 -Total Square Cm 1.20 -Wound/Ulcer Outcome Not Healed -Ulcer Cleansing Rinsed/ Irrigated with Saline -Foul Odor after Cleansing No -Bioengineered Tissue No -Bleeding Controlled with Pressure -Treatment Response Procedure Tolerated Well [See Physician Procedure note for Specifics] Pain Scale: 0-10 Numeric [Pain] -Is Patient Pain Free? Yes Musculoskeletal: No Muscle Wasting Neurological: Cranial nerves II-XII grossly intact Debridement Note Post-Debridement Measurements/Treatment WC - Nurse 2 - General Ulcer CM Notes Start: 08/31/18 11:41 Freq: Status: Active Protocol: Activity Type Activity Date Activity User E-Sign Co-Sign Detail Recorded Client Recorded Date Recorded By Document 08/31/18 11:56 MW [id number] 08/31/18 11:59 MW Document 09/08/18 10:04 MW [id number] 09/08/18 10:09 MW Document 09/16/18 16:25 CS [id number] 09/16/18 16:31 CS Document 09/28/18 09:45 MW [id number] 09/28/18 09:48 MW 08/31/18 09/08/18 09/16/18 11:56 10:04 16:25 Wound Center Nurse 2 #1 R Post LE -Time 11:56 10:04 16:27 -Correct Patient Yes Yes Yes -Correct Side, Site, Position Yes Yes Yes -Correct Procedure Yes Yes Yes -Procedure Performed Yes Yes Yes -Type of Procedure Debridement Debridement Debridement -Clinical Debridement Subcutaneous Subcutaneous Subcutaneous -Post Debridement Size (cm) - Length 1.3 1.1 1.5 -Post Debridement Size (cm) - Width 0.9 1.3 1.5 -Post Debridement Size (cm) - Depth 0.5 0.5 0.3 -Total Square Cm 1.17 1.43 2.25 -Wound/Ulcer Outcome Not Healed Not Healed Not Healed -Ulcer Cleansing Rinsed/ Rinsed/ Not Cleansed Irrigated with Irrigated with Saline Saline -Foul Odor after Cleansing No No No -Bioengineered Tissue No No No -Bleeding Controlled with Pressure Pressure Pressure -Treatment Response Procedure Procedure Procedure Tolerated Well Tolerated Well Tolerated Well Pain Scale: 0-10 Numeric Is Patient Pain Free? Yes Yes Yes 09/28/18 09:45 Wound Center Nurse 2 #1 R Post LE -Time 09:45 -Correct Patient Yes -Correct Side, Site, Position Yes -Correct Procedure Yes -Procedure Performed Yes -Type of Procedure Debridement -Clinical Debridement Subcutaneous -Post Debridement Size (cm) - Length 1.2 -Post Debridement Size (cm) - Width 1.0 -Post Debridement Size (cm) - Depth 0.2 -Total Square Cm 1.20 -Wound/Ulcer Outcome Not Healed -Ulcer Cleansing Rinsed/ Irrigated with Saline -Foul Odor after Cleansing No -Bioengineered Tissue No -Bleeding Controlled with Pressure -Treatment Response Procedure Tolerated Well Pain Scale: 0-10 Numeric Is Patient Pain Free? Yes Wound debrided: Right lower extremity Wound Grade/Stage: Stage II Type of Debridement: Excisional debridement Anesthesia Used: 4% Lidocaine Solution Depth: Down to and including healthy tissue, in the subcutaneous layer Percentage of wound debrided: 100 Instrument Used: #15 blade Tissue Removed: Slough and devitalized tissue Severity: Fat Layer Exposed Amount of bleeding with debridement: Mild Bleeding Controlled with: Compression and gauze Patient tolerated procedure well Assessment/Plan Active Problems Spina bifida (Chronic) Ulcer of right lower extremity with fat layer exposed (Chronic) Paraplegia (Chronic) Assessment: Right lower extremity ulcer with fat layer exposed, poor healing. Plan: No new concerns at this time. Debridement done as documented above, procedure was well-tolerated. Continue edouard daily with adaptic over top. Vascular studies reviewed, no concerns at this time. Increased protein intake recommended. Prealbumin borderline. All her questions were answered and she was advised to call with any further concerns. Follow up in 1 week. This note was generated with [employer] dictation software. It may contain incorrect words, spelling, and punctuation that were not noted in checking the note before signing.
--- NOTE | 2018-09-28 09:54 | PN.PCM_ITS ---
(1) Ulcer of right lower extremity with fat layer exposed Status: Chronic Current Visit: Yes Code(s): L97.912 - Non-pressure chronic ulcer of unspecified part of right lower leg with fat layer exposed (2) Paraplegia Status: Chronic Current Visit: Yes Code(s): G82.20 - Paraplegia, unspecified (3) Spina bifida Status: Chronic Current Visit: Yes Qualifiers: Spinal region: unspecified Code(s): Q05.9 - Spina bifida, unspecified Type of Wound Chief Complaint: R lower extremity ulcer. History of Wound: Ms. Mcdaniel is a pleasent 47 year old with PMH as stated above who presents to the wound center with history of R Lower extremity ulcer. Unsure about the origin however, it was noted by her care director in July 2018. She has been applying antibiotic ointment daily without significant improvement. She otherwise feels well. Progress of Wound: Stable. No new complaints at this time. - Physical Exam Vital Signs Temp Pulse Resp BP 99.3 F H 86 18 111/70 09/28/18 09:28 09/28/18 09:28 09/28/18 09:28 09/28/18 09:28 General: Alert, Oriented x3, Cooperative, No apparent distress HEENT: Atraumatic Oral: Moist Mucosa Neck: Supple Lungs: Normal air movement Abdomen: Soft, Non Tender Extremities: No edema Wound Measurements and Assessment WC - Nurse 1 - General Ulcer Measurement Start: 08/31/18 11:41 Freq: Status: Active Protocol: Activity Type Activity Date Activity User E-Sign Co-Sign Detail Recorded Client Recorded Date Recorded By Document 09/28/18 09:28 DL [id number] 09/28/18 09:38 DL 09/28/18 09:28 Wound Center Nurse 1 [Ulcer Assessment] #1 R Post LE -Current Size (cm) - Length 1.3 -Current Size (cm) - Width 1 -Current Size (cm) - Depth 0.2 -Total Square Cm 1.3 -Photo Taken Yes -Exudate Amt Small (1-33%) -Exudate Type Serosanguineous -Wound Margin Distinct, Outline Attached -Granulation Amt Small (1-33%) -Granulation Quality Pale -Necrosis Amt Large (67-100%) -Necrotic Tissue Type Adherent Slough -Structure Exposed N/A -Texture (Yudith-wound Skin Appearance) Scarring -Moisture (Yudith-wound Skin Appearance No Abnormality ) -Color (Yudith-wound Skin Appearance) No Abnormality -Temperature (Yudith-wound Skin No Abnormality Appearance) (Pt Warm) -Ulcer Cleansing Rinsed/ Irrigated with Saline -Foul Odor after Cleansing No -Anesthetic Used 4% Lidocaine Solution WC - Nurse 2 - General Ulcer CM Notes Start: 08/31/18 11:41 Freq: Status: Active Protocol: Activity Type Activity Date Activity User E-Sign Co-Sign Detail Recorded Client Recorded Date Recorded By Document 09/28/18 09:45 MW [id number] 09/28/18 09:48 MW 09/28/18 09:45 Wound Center Nurse 2 [Procedure/Treatment] -Time 09:45 -Correct Patient Yes -Correct Side, Site, Position Yes -Correct Procedure Yes -Procedure Performed Yes -Type of Procedure Debridement -Clinical Debridement Subcutaneous -Post Debridement Size (cm) - Length 1.2 -Post Debridement Size (cm) - Width 1.0 -Post Debridement Size (cm) - Depth 0.2 -Total Square Cm 1.20 -Wound/Ulcer Outcome Not Healed -Ulcer Cleansing Rinsed/ Irrigated with Saline -Foul Odor after Cleansing No -Bioengineered Tissue No -Bleeding Controlled with Pressure -Treatment Response Procedure Tolerated Well [See Physician Procedure note for Specifics] Pain Scale: 0-10 Numeric [Pain] -Is Patient Pain Free? Yes Musculoskeletal: No Muscle Wasting Neurological: Cranial nerves II-XII grossly intact Debridement Note Post-Debridement Measurements/Treatment WC - Nurse 2 - General Ulcer CM Notes Start: 08/31/18 11:41 Freq: Status: Active Protocol: Activity Type Activity Date Activity User E-Sign Co-Sign Detail Recorded Client Recorded Date Recorded By Document 08/31/18 11:56 MW [id number] 08/31/18 11:59 MW Document 09/08/18 10:04 MW [id number] 09/08/18 10:09 MW Document 09/16/18 16:25 CS [id number] 09/16/18 16:31 CS Document 09/28/18 09:45 MW [id number] 09/28/18 09:48 MW 08/31/18 09/08/18 09/16/18 11:56 10:04 16:25 Wound Center Nurse 2 #1 R Post LE -Time 11:56 10:04 16:27 -Correct Patient Yes Yes Yes -Correct Side, Site, Position Yes Yes Yes -Correct Procedure Yes Yes Yes -Procedure Performed Yes Yes Yes -Type of Procedure Debridement Debridement Debridement -Clinical Debridement Subcutaneous Subcutaneous Subcutaneous -Post Debridement Size (cm) - Length 1.3 1.1 1.5 -Post Debridement Size (cm) - Width 0.9 1.3 1.5 -Post Debridement Size (cm) - Depth 0.5 0.5 0.3 -Total Square Cm 1.17 1.43 2.25 -Wound/Ulcer Outcome Not Healed Not Healed Not Healed -Ulcer Cleansing Rinsed/ Rinsed/ Not Cleansed Irrigated with Irrigated with Saline Saline -Foul Odor after Cleansing No No No -Bioengineered Tissue No No No -Bleeding Controlled with Pressure Pressure Pressure -Treatment Response Procedure Procedure Procedure Tolerated Well Tolerated Well Tolerated Well Pain Scale: 0-10 Numeric Is Patient Pain Free? Yes Yes Yes 09/28/18 09:45 Wound Center Nurse 2 #1 R Post LE -Time 09:45 -Correct Patient Yes -Correct Side, Site, Position Yes -Correct Procedure Yes -Procedure Performed Yes -Type of Procedure Debridement -Clinical Debridement Subcutaneous -Post Debridement Size (cm) - Length 1.2 -Post Debridement Size (cm) - Width 1.0 -Post Debridement Size (cm) - Depth 0.2 -Total Square Cm 1.20 -Wound/Ulcer Outcome Not Healed -Ulcer Cleansing Rinsed/ Irrigated with Saline -Foul Odor after Cleansing No -Bioengineered Tissue No -Bleeding Controlled with Pressure -Treatment Response Procedure Tolerated Well Pain Scale: 0-10 Numeric Is Patient Pain Free? Yes Wound debrided: Right lower extremity Wound Grade/Stage: Stage II Type of Debridement: Excisional debridement Anesthesia Used: 4% Lidocaine Solution Depth: Down to and including healthy tissue, in the subcutaneous layer Percentage of wound debrided: 100 Instrument Used: #15 blade Tissue Removed: Slough and devitalized tissue Severity: Fat Layer Exposed Amount of bleeding with debridement: Mild Bleeding Controlled with: Compression and gauze Patient tolerated procedure well Assessment/Plan Active Problems Spina bifida (Chronic) Ulcer of right lower extremity with fat layer exposed (Chronic) Paraplegia (Chronic) Assessment: Right lower extremity ulcer with fat layer exposed, poor healing. Plan: No new concerns at this time. Debridement done as documented above, procedure was well-tolerated. Continue edouard daily with adaptic over top. Vascular studies reviewed, no concerns at this time. Increased protein intake recommended. Prealbumin borderline. All her questions were answered and she was advised to call with any further concerns. Follow up in 1 week. This note was generated with [employer] dictation software. It may contain incorrect words, spelling, and punctuation that were not noted in checking the note before signing.
== END 2018-09-28 23:59 ==
LOC: WC 09:30
PROVIDERS: Family Provider Family Medicine; PCP Family Medicine; Referring Provider Internal Medicine; Visit Provider Internal Medicine
DX: L97.812 Non-pressure chronic ulcer of other part of right lower leg with fat layer exposed (principal); G82.20 Paraplegia, unspecified; Q05.9 Spina bifida, unspecified
CPT/HCPCS: 11042; 93923

== ENCOUNTER 2018-10-26 10:00 | Outpatient (RCR) | payer MEDICARE, MEDICAID, SELFPAY ==
[2018-09-29 01:28] VITALS: BP 111/70; PULSE 86; RESP 18; TEMP 37.4
[2018-10-05 09:35] VITALS: BP 110/76; PULSE 91; RESP 16; TEMP 36.6
--- NOTE | 2018-10-05 09:57 | PN.PCM_ITS ---
(1) Ulcer of right lower extremity with fat layer exposed Status: Chronic Current Visit: Yes Code(s): L97.912 - Non-pressure chronic ulcer of unspecified part of right lower leg with fat layer exposed (2) Paraplegia Status: Chronic Current Visit: No Code(s): G82.20 - Paraplegia, unspecified Type of Wound Chief Complaint: R lower extremity ulcer. History of Wound: Ms. Mcdaniel is a pleasent 47 year old with PMH as stated above who presents to the wound center with history of R Lower extremity ulcer. Unsure about the origin however, it was noted by her medication care manager in July 2018. She has been applying antibiotic ointment daily without significant improvement. She otherwise feels well. Progress of Wound: Improving. No new complaints at this time. - Physical Exam Vital Signs Temp Pulse Resp BP 98 F 91 16 110/76 10/05/18 09:35 10/05/18 09:35 10/05/18 09:35 10/05/18 09:35 General: Alert, Oriented x3, Cooperative, No apparent distress HEENT: Atraumatic Oral: Moist Mucosa Neck: Supple Lungs: Normal air movement Abdomen: Non Tender Extremities: No cyanosis Skin: Ulcer/ Wound Wound Measurements and Assessment WC - Nurse 1 - General Ulcer Measurement Start: 10/05/18 09:35 Freq: Status: Active Protocol: Activity Type Activity Date Activity User E-Sign Co-Sign Detail Recorded Client Recorded Date Recorded By Document 10/05/18 09:35 [id number] 10/05/18 09:38 10/05/18 09:35 Wound Center Nurse 1 [Ulcer Assessment] #1 R Post LE -Combined with other wound No -Current Size (cm) - Length 1.2 -Current Size (cm) - Width 0.8 -Current Size (cm) - Depth 0.2 -Total Square Cm 0.96 -Date of Last Picture (Recall this 10/05/18 field) -Photo Taken Yes -Epithelialization None Present -Tunneling No -Undermining/Tunneling No -Circular Undermining No -Exudate Amt Small (1-33%) -Exudate Type Serosanguineous -Wound Margin Distinct, Outline Attached -Granulation Amt Medium (34-66%) -Granulation Quality [place] -Slough/Fibrin Yes -Necrosis Amt Medium (34-66%) -Necrotic Tissue Type Adherent Slough -Texture (Yudith-wound Skin Appearance) Scarring -Moisture (Yudith-wound Skin Appearance Assessed ) -Color (Yudith-wound Skin Appearance) Assessed Erythema -Temperature (Yudith-wound Skin No Abnormality Appearance) (Pt Warm) -Tenderness on Palpation (Yudith-wound No Skin Appearance) -Ulcer Cleansing Rinsed/ Irrigated with Saline -Foul Odor after Cleansing No -Anesthetic Used 4% Lidocaine Solution - Nurse 2 - General Ulcer CM Notes Start: 10/05/18 09:35 Freq: Status: Active Protocol: Activity Type Activity Date Activity User E-Sign Co-Sign Detail Recorded Client Recorded Date Recorded By Document 10/05/18 09:45 MW [id number] 10/05/18 09:49 MW 10/05/18 09:45 Wound Center Nurse 2 [Procedure/Treatment] -Time 09:45 -Correct Patient Yes -Correct Side, Site, Position Yes -Correct Procedure Yes -Procedure Performed Yes -Type of Procedure Debridement -Clinical Debridement Subcutaneous -Post Debridement Size (cm) - Length 0.9 -Post Debridement Size (cm) - Width 0.9 -Post Debridement Size (cm) - Depth 0.2 -Total Square Cm 0.81 -Wound/Ulcer Outcome Not Healed -Ulcer Cleansing Rinsed/ Irrigated with Saline -Foul Odor after Cleansing No -Bioengineered Tissue No -Bleeding Controlled with Pressure -Treatment Response Procedure Tolerated Well [See Physician Procedure note for Specifics] Pain Scale: 0-10 Numeric [Pain] -Is Patient Pain Free? Yes Musculoskeletal: No Muscle Wasting Neurological: Cranial nerves II-XII grossly intact Psych/Mental Status: Normal Affect Debridement Note Post-Debridement Measurements/Treatment - Nurse 2 - General Ulcer CM Notes Start: 10/05/18 09:35 Freq: Status: Active Protocol: Activity Type Activity Date Activity User E-Sign Co-Sign Detail Recorded Client Recorded Date Recorded By Document 10/05/18 09:45 MW [id number] 10/05/18 09:49 MW 10/05/18 09:45 Wound Center Nurse 2 #1 R Post LE -Time 09:45 -Correct Patient Yes -Correct Side, Site, Position Yes -Correct Procedure Yes -Procedure Performed Yes -Type of Procedure Debridement -Clinical Debridement Subcutaneous -Post Debridement Size (cm) - Length 0.9 -Post Debridement Size (cm) - Width 0.9 -Post Debridement Size (cm) - Depth 0.2 -Total Square Cm 0.81 -Wound/Ulcer Outcome Not Healed -Ulcer Cleansing Rinsed/ Irrigated with Saline -Foul Odor after Cleansing No -Bioengineered Tissue No -Bleeding Controlled with Pressure -Treatment Response Procedure Tolerated Well Pain Scale: 0-10 Numeric Is Patient Pain Free? Yes Wound debrided: Right lower extremity Wound Grade/Stage: Stage II Type of Debridement: Excisional debridement Anesthesia Used: 4% Lidocaine Solution Depth: Down to and including healthy tissue, in the subcutaneous layer Percentage of wound debrided: 100 Instrument Used: 7mm curette Tissue Removed: Slough and devitalized tissue Severity: Fat Layer Exposed Amount of bleeding with debridement: Mild Bleeding Controlled with: Pressure Patient tolerated procedure well Assessment/Plan Active Problems Ulcer of right lower extremity with fat layer exposed (Chronic) Assessment: Right lower extremity ulcer with fat layer exposed, poor healing. Plan: Improving. Debridement done as documented above, procedure was well- tolerated. Continue edouard daily with adaptic over top. Increased protein intake recommended. Prealbumin borderline. All her questions were answered and she was advised to call with any further concerns. Follow up in 1 week. This note was generated with [employer] dictation software. It may contain incorrect words, spelling, and punctuation that were not noted in checking the note before signing.
[2018-10-12 10:12] VITALS: BP 116/63; PULSE 90; RESP 16; TEMP 37.2
--- NOTE | 2018-10-12 10:46 | PCM.WC.PN ---
(1) Ulcer of right lower extremity with fat layer exposed Status: Chronic Current Visit: Yes Code(s): L97.912 - Non-pressure chronic ulcer of unspecified part of right lower leg with fat layer exposed (2) Paraplegia Status: Chronic Current Visit: No Code(s): G82.20 - Paraplegia, unspecified Type of Wound Chief Complaint: R lower extremity ulcer. History of Wound: Ms. Mcdaniel is a pleasent 47 year old with PMH as stated above who presents to the wound center with history of R Lower extremity ulcer. Unsure about the origin however, it was noted by her transitional care manager in July 2018. She has been applying antibiotic ointment daily without significant improvement. She otherwise feels well. Progress of Wound: Improving. No new complaints at this time. - Physical Exam Vital Signs Temp Pulse Resp BP 98.9 F 90 16 116/63 10/12/18 10:12 10/12/18 10:12 10/12/18 10:12 10/12/18 10:12 General: Alert, Oriented x3, Cooperative, No apparent distress HEENT: Atraumatic Oral: Moist Mucosa Neck: Supple Lungs: Normal air movement Cardiovascular: Regular rate Abdomen: Non Tender Extremities: No cyanosis Skin: Ulcer/ Wound Wound Measurements and Assessment WC - Nurse 1 - General Ulcer Measurement Start: 10/05/18 09:35 Freq: Status: Active Protocol: Activity Type Activity Date Activity User E-Sign Co-Sign Detail Recorded Client Recorded Date Recorded By Document 10/12/18 10:12 [facility] [id number] 10/12/18 10:17 [facility] 10/12/18 10:12 Wound Center Nurse 1 [Ulcer Assessment] #1 R Post LE -Combined with other wound No -Current Size (cm) - Length 0.7 -Current Size (cm) - Width 0.5 -Current Size (cm) - Depth 0.2 -Total Square Cm 0.35 -Photo Taken No -Epithelialization None Present -Tunneling No -Undermining/Tunneling No -Circular Undermining No -Exudate Amt Small (1-33%) -Exudate Type Serosanguineous -Wound Margin Distinct, Outline Attached -Granulation Amt Medium (34-66%) -Granulation Quality [place] -Slough/Fibrin Yes -Necrosis Amt Medium (34-66%) -Necrotic Tissue Type Adherent Slough -Texture (Yudith-wound Skin Appearance) Scarring -Moisture (Yudith-wound Skin Appearance Assessed ) -Color (Yudith-wound Skin Appearance) Erythema -Temperature (Yudith-wound Skin No Abnormality Appearance) (Pt Warm) -Tenderness on Palpation (Yudith-wound No Skin Appearance) -Ulcer Cleansing Rinsed/ Irrigated with Saline -Foul Odor after Cleansing No -Anesthetic Used 5% Lidocaine Gel - Nurse 2 - General Ulcer CM Notes Start: 10/05/18 09:35 Freq: Status: Active Protocol: Activity Type Activity Date Activity User E-Sign Co-Sign Detail Recorded Client Recorded Date Recorded By Document 10/12/18 10:24 [id number] 10/12/18 10:26 10/12/18 10:24 Wound Center Nurse 2 [Procedure/Treatment] -Time 10:24 -Correct Patient Yes -Correct Side, Site, Position Yes -Correct Procedure Yes -Procedure Performed Yes -Type of Procedure Debridement -Clinical Debridement Subcutaneous -Post Debridement Size (cm) - Length 0.9 -Post Debridement Size (cm) - Width 0.5 -Post Debridement Size (cm) - Depth 0.1 -Total Square Cm 0.45 -Wound/Ulcer Outcome Not Healed -Ulcer Cleansing Rinsed/ Irrigated with Saline -Foul Odor after Cleansing No -Bioengineered Tissue No -Bleeding Controlled with Pressure -Treatment Response Procedure Tolerated Well [See Physician Procedure note for Specifics] Pain Scale: 0-10 Numeric [Pain] -Is Patient Pain Free? Yes Musculoskeletal: No Muscle Wasting Neurological: Cranial nerves II-XII grossly intact Psych/Mental Status: Normal Affect Debridement Note Post-Debridement Measurements/Treatment - Nurse 2 - General Ulcer Notes Start: 10/05/18 09:35 Freq: Status: Active Protocol: Activity Type Activity Date Activity User E-Sign Co-Sign Detail Recorded Client Recorded Date Recorded By Document 10/05/18 09:45 MW [id number] 10/05/18 09:49 MW Document 10/12/18 10:24 [id number] 10/12/18 10:26 10/05/18 10/12/18 09:45 10:24 Wound Center Nurse 2 #1 R Post LE -Time 09:45 10:24 -Correct Patient Yes Yes -Correct Side, Site, Position Yes Yes -Correct Procedure Yes Yes -Procedure Performed Yes Yes -Type of Procedure Debridement Debridement -Clinical Debridement Subcutaneous Subcutaneous -Post Debridement Size (cm) - Length 0.9 0.9 -Post Debridement Size (cm) - Width 0.9 0.5 -Post Debridement Size (cm) - Depth 0.2 0.1 -Total Square Cm 0.81 0.45 -Wound/Ulcer Outcome Not Healed Not Healed -Ulcer Cleansing Rinsed/ Rinsed/ Irrigated with Irrigated with Saline Saline -Foul Odor after Cleansing No No -Bioengineered Tissue No No -Bleeding Controlled with Pressure Pressure -Treatment Response Procedure Procedure Tolerated Well Tolerated Well Pain Scale: 0-10 Numeric Is Patient Pain Free? Yes Yes Wound debrided: Right lower extremity Wound Grade/Stage: Stage II Type of Debridement: Excisional debridement Anesthesia Used: 4% Lidocaine Solution Depth: Down to and including healthy tissue, in the subcutaneous layer Percentage of wound debrided: 100 Instrument Used: 3mm curette Tissue Removed: Slough and devitalized tissue Severity: Fat Layer Exposed Amount of bleeding with debridement: Mild Bleeding Controlled with: Pressure Patient tolerated procedure well Assessment/Plan Active Problems Ulcer of right lower extremity with fat layer exposed (Chronic) Assessment: Right lower extremity ulcer with fat layer exposed, poor healing. Plan: Improving. Debridement done as documented above, procedure was well-tolerated. Continue edouard daily with adaptic over top. Change daily. Increased protein intake recommended. Prealbumin borderline. All her questions were answered and she was advised to call with any further concerns. Follow up in 1 week. This note was generated with [employer] software. It may contain incorrect words, spelling, and punctuation that were not noted in checking the note before signing.
[2018-10-26 09:56] VITALS: BP 112/68; PULSE 98; RESP 18; TEMP 37.3
--- NOTE | 2018-10-26 10:10 | PCM.WC.PN ---
(1) Ulcer of right lower extremity with fat layer exposed Status: Chronic Current Visit: Yes Code(s): L97.912 - Non-pressure chronic ulcer of unspecified part of right lower leg with fat layer exposed (2) Paraplegia Status: Chronic Current Visit: No Code(s): G82.20 - Paraplegia, unspecified Type of Wound Chief Complaint: R lower extremity ulcer. History of Wound: Ms. Mcdaniel is a pleasent 47 year old with PMH as stated above who presents to the wound center with history of R Lower extremity ulcer. Unsure about the origin however, it was noted by her ostomy care nurse in July 2018. She has been applying antibiotic ointment daily without significant improvement. She otherwise feels well. Progress of Wound: Improving. No new complaints at this time. - Physical Exam Vital Signs Temp Pulse Resp BP 99.1 F 98 18 112/68 10/26/18 09:56 10/26/18 09:56 10/26/18 09:56 10/26/18 09:56 General: Alert, Oriented x3, Cooperative, No apparent distress HEENT: Atraumatic Oral: Moist Mucosa Neck: Supple Lungs: Normal air movement Abdomen: Non Tender Extremities: No cyanosis Skin: Ulcer/ Wound Wound Measurements and Assessment WC - Nurse 1 - General Ulcer Measurement Start: 10/05/18 09:35 Freq: Status: Active Protocol: Activity Type Activity Date Activity User E-Sign Co-Sign Detail Recorded Client Recorded Date Recorded By Document 10/26/18 09:56 [id number] 10/26/18 09:58 10/26/18 09:56 Wound Center Nurse 1 [Ulcer Assessment] #1 R Post LE -Combined with other wound No -Current Size (cm) - Length 0.6 -Current Size (cm) - Width 0.4 -Current Size (cm) - Depth 0.1 -Total Square Cm 0.24 -Photo Taken No -Epithelialization None Present -Tunneling No -Undermining/Tunneling No -Circular Undermining No -Exudate Amt Small (1-33%) -Exudate Type Serosanguineous -Wound Margin Distinct, Outline Attached -Granulation Amt Small (1-33%) -Granulation Quality Pale [place] -Slough/Fibrin Yes -Necrosis Amt None Present (0 %) -Necrotic Tissue Type Adherent Slough -Structure Exposed None/Limited to Skin Breakdown -Texture (Yudith-wound Skin Appearance) Scarring -Moisture (Yudith-wound Skin Appearance No Abnormality ) Assessed -Color (Yudith-wound Skin Appearance) No Abnormality Assessed -Temperature (Yudith-wound Skin No Abnormality Appearance) (Pt Warm) -Tenderness on Palpation (Yudith-wound No Skin Appearance) -Ulcer Cleansing Rinsed/ Irrigated with Saline -Foul Odor after Cleansing No -Anesthetic Used 4% Lidocaine Solution [Edema Assessment] -Lower Limb Edema Present NA - Nurse 2 - General Ulcer CM Notes Start: 10/05/18 09:35 Freq: Status: Active Protocol: Activity Type Activity Date Activity User E-Sign Co-Sign Detail Recorded Client Recorded Date Recorded By Document 10/26/18 10:04 MW [id number] 10/26/18 10:08 MW 10/26/18 10:04 Wound Center Nurse 2 [Procedure/Treatment] #1 R Post LE -Time 10:05 -Correct Patient Yes -Correct Side, Site, Position Yes -Correct Procedure Yes -Procedure Performed Yes -Type of Procedure Debridement -Clinical Debridement Subcutaneous -Post Debridement Size (cm) - Length 0.6 -Post Debridement Size (cm) - Width 0.4 -Post Debridement Size (cm) - Depth 0.1 -Total Square Cm 0.24 -Wound/Ulcer Outcome Not Healed -Ulcer Cleansing Rinsed/ Irrigated with Saline -Foul Odor after Cleansing No -Bioengineered Tissue No -Bleeding Controlled with Pressure -Treatment Response Procedure Tolerated Well [See Physician Procedure note for Specifics] Pain Scale: 0-10 Numeric [Pain] -Is Patient Pain Free? Yes Musculoskeletal: No Muscle Wasting Neurological: Cranial nerves II-XII grossly intact Psych/Mental Status: Normal Affect Debridement Note Post-Debridement Measurements/Treatment - Nurse 2 - General Ulcer CM Notes Start: 10/05/18 09:35 Freq: Status: Active Protocol: Activity Type Activity Date Activity User E-Sign Co-Sign Detail Recorded Client Recorded Date Recorded By Document 10/05/18 09:45 MW [id number] 10/05/18 09:49 MW Document 10/12/18 10:24 CS [id number] 10/12/18 10:26 CS Document 10/26/18 10:04 MW [id number] 10/26/18 10:08 MW 10/05/18 10/12/18 10/26/18 09:45 10:24 10:04 Wound Center Nurse 2 #1 R Post LE -Time 09:45 10:24 10:05 -Correct Patient Yes Yes Yes -Correct Side, Site, Position Yes Yes Yes -Correct Procedure Yes Yes Yes -Procedure Performed Yes Yes Yes -Type of Procedure Debridement Debridement Debridement -Clinical Debridement Subcutaneous Subcutaneous Subcutaneous -Post Debridement Size (cm) - Length 0.9 0.9 0.6 -Post Debridement Size (cm) - Width 0.9 0.5 0.4 -Post Debridement Size (cm) - Depth 0.2 0.1 0.1 -Total Square Cm 0.81 0.45 0.24 -Wound/Ulcer Outcome Not Healed Not Healed Not Healed -Ulcer Cleansing Rinsed/ Rinsed/ Rinsed/ Irrigated with Irrigated with Irrigated with Saline Saline Saline -Foul Odor after Cleansing No No No -Bioengineered Tissue No No No -Bleeding Controlled with Pressure Pressure Pressure -Treatment Response Procedure Procedure Procedure Tolerated Well Tolerated Well Tolerated Well Pain Scale: 0-10 Numeric Is Patient Pain Free? Yes Yes Yes Wound debrided: Right posterior lower extremity Wound Grade/Stage: Stage II Type of Debridement: Excisional debridement Anesthesia Used: 4% Lidocaine Solution Depth: Down to and including healthy tissue, in the subcutaneous layer Percentage of wound debrided: 100 Instrument Used: 3mm curette Tissue Removed: Slough and devitalized tissue Severity: Fat Layer Exposed Amount of bleeding with debridement: Mild Bleeding Controlled with: Pressure Patient tolerated procedure well Assessment/Plan Active Problems Ulcer of right lower extremity with fat layer exposed (Chronic) Assessment: Right lower extremity ulcer with fat layer exposed, poor healing. Plan: Continues to show good improvement. Debridement done as documented above, procedure was well-tolerated. Continue edouard daily with adaptic over top. Change daily. Increased protein intake recommended. Prealbumin borderline. All her questions were answered and she was advised to call with any further concerns. Follow up in 2 weeks. This note was generated with [employer] dictation software. It may contain incorrect words, spelling, and punctuation that were not noted in checking the note before signing.
--- NOTE | 2018-10-26 10:16 | PN.PCM_ITS ---
(1) Ulcer of right lower extremity with fat layer exposed Status: Chronic Current Visit: Yes Code(s): L97.912 - Non-pressure chronic ulcer of unspecified part of right lower leg with fat layer exposed (2) Paraplegia Status: Chronic Current Visit: No Code(s): G82.20 - Paraplegia, unspecified Type of Wound Chief Complaint: R lower extremity ulcer. History of Wound: Ms. Mcdaniel is a pleasent 47 year old with PMH as stated above who presents to the wound center with history of R Lower extremity ulcer. Unsure about the origin however, it was noted by her career technical education teacher in July 2018. She has been applying antibiotic ointment daily without significant improvement. She otherwise feels well. Progress of Wound: Improving. No new complaints at this time. - Physical Exam Vital Signs Temp Pulse Resp BP 99.1 F 98 18 112/68 10/26/18 09:56 10/26/18 09:56 10/26/18 09:56 10/26/18 09:56 General: Alert, Oriented x3, Cooperative, No apparent distress HEENT: Atraumatic Oral: Moist Mucosa Neck: Supple Lungs: Normal air movement Abdomen: Non Tender Extremities: No cyanosis Skin: Ulcer/ Wound Wound Measurements and Assessment WC - Nurse 1 - General Ulcer Measurement Start: 10/05/18 09:35 Freq: Status: Active Protocol: Activity Type Activity Date Activity User E-Sign Co-Sign Detail Recorded Client Recorded Date Recorded By Document 10/26/18 09:56 [id number] 10/26/18 09:58 10/26/18 09:56 Wound Center Nurse 1 [Ulcer Assessment] #1 R Post LE -Combined with other wound No -Current Size (cm) - Length 0.6 -Current Size (cm) - Width 0.4 -Current Size (cm) - Depth 0.1 -Total Square Cm 0.24 -Photo Taken No -Epithelialization None Present -Tunneling No -Undermining/Tunneling No -Circular Undermining No -Exudate Amt Small (1-33%) -Exudate Type Serosanguineous -Wound Margin Distinct, Outline Attached -Granulation Amt Small (1-33%) -Granulation Quality Pale [place] -Slough/Fibrin Yes -Necrosis Amt None Present (0 %) -Necrotic Tissue Type Adherent Slough -Structure Exposed None/Limited to Skin Breakdown -Texture (Yudith-wound Skin Appearance) Scarring -Moisture (Yudith-wound Skin Appearance No Abnormality ) Assessed -Color (Yudith-wound Skin Appearance) No Abnormality Assessed -Temperature (Yudith-wound Skin No Abnormality Appearance) (Pt Warm) -Tenderness on Palpation (Yudith-wound No Skin Appearance) -Ulcer Cleansing Rinsed/ Irrigated with Saline -Foul Odor after Cleansing No -Anesthetic Used 4% Lidocaine Solution [Edema Assessment] -Lower Limb Edema Present NA - Nurse 2 - General Ulcer CM Notes Start: 10/05/18 09:35 Freq: Status: Active Protocol: Activity Type Activity Date Activity User E-Sign Co-Sign Detail Recorded Client Recorded Date Recorded By Document 10/26/18 10:04 MW [id number] 10/26/18 10:08 MW 10/26/18 10:04 Wound Center Nurse 2 [Procedure/Treatment] #1 R Post LE -Time 10:05 -Correct Patient Yes -Correct Side, Site, Position Yes -Correct Procedure Yes -Procedure Performed Yes -Type of Procedure Debridement -Clinical Debridement Subcutaneous -Post Debridement Size (cm) - Length 0.6 -Post Debridement Size (cm) - Width 0.4 -Post Debridement Size (cm) - Depth 0.1 -Total Square Cm 0.24 -Wound/Ulcer Outcome Not Healed -Ulcer Cleansing Rinsed/ Irrigated with Saline -Foul Odor after Cleansing No -Bioengineered Tissue No -Bleeding Controlled with Pressure -Treatment Response Procedure Tolerated Well [See Physician Procedure note for Specifics] Pain Scale: 0-10 Numeric [Pain] -Is Patient Pain Free? Yes Musculoskeletal: No Muscle Wasting Neurological: Cranial nerves II-XII grossly intact Psych/Mental Status: Normal Affect Debridement Note Post-Debridement Measurements/Treatment - Nurse 2 - General Ulcer CM Notes Start: 10/05/18 09:35 Freq: Status: Active Protocol: Activity Type Activity Date Activity User E-Sign Co-Sign Detail Recorded Client Recorded Date Recorded By Document 10/05/18 09:45 MW [id number] 10/05/18 09:49 MW Document 10/12/18 10:24 CS [id number] 10/12/18 10:26 CS Document 10/26/18 10:04 MW [id number] 10/26/18 10:08 MW 10/05/18 10/12/18 10/26/18 09:45 10:24 10:04 Wound Center Nurse 2 #1 R Post LE -Time 09:45 10:24 10:05 -Correct Patient Yes Yes Yes -Correct Side, Site, Position Yes Yes Yes -Correct Procedure Yes Yes Yes -Procedure Performed Yes Yes Yes -Type of Procedure Debridement Debridement Debridement -Clinical Debridement Subcutaneous Subcutaneous Subcutaneous -Post Debridement Size (cm) - Length 0.9 0.9 0.6 -Post Debridement Size (cm) - Width 0.9 0.5 0.4 -Post Debridement Size (cm) - Depth 0.2 0.1 0.1 -Total Square Cm 0.81 0.45 0.24 -Wound/Ulcer Outcome Not Healed Not Healed Not Healed -Ulcer Cleansing Rinsed/ Rinsed/ Rinsed/ Irrigated with Irrigated with Irrigated with Saline Saline Saline -Foul Odor after Cleansing No No No -Bioengineered Tissue No No No -Bleeding Controlled with Pressure Pressure Pressure -Treatment Response Procedure Procedure Procedure Tolerated Well Tolerated Well Tolerated Well Pain Scale: 0-10 Numeric Is Patient Pain Free? Yes Yes Yes Wound debrided: Right posterior lower extremity Wound Grade/Stage: Stage II Type of Debridement: Excisional debridement Anesthesia Used: 4% Lidocaine Solution Depth: Down to and including healthy tissue, in the subcutaneous layer Percentage of wound debrided: 100 Instrument Used: 3mm curette Tissue Removed: Slough and devitalized tissue Severity: Fat Layer Exposed Amount of bleeding with debridement: Mild Bleeding Controlled with: Pressure Patient tolerated procedure well Assessment/Plan Active Problems Ulcer of right lower extremity with fat layer exposed (Chronic) Assessment: Right lower extremity ulcer with fat layer exposed, poor healing. Plan: Continues to show good improvement. Debridement done as documented above, procedure was well-tolerated. Continue edouard daily with adaptic over top. Change daily. Increased protein intake recommended. Prealbumin borderline. All her questions were answered and she was advised to call with any further concerns. Follow up in 2 weeks. This note was generated with [employer] dictation software. It may contain incorrect words, spelling, and punctuation that were not noted in checking the note before signing.
== END 2018-10-28 23:59 ==
LOC: WC 10:00
PROVIDERS: Family Provider Family Medicine; PCP Family Medicine; Referring Provider Internal Medicine; Visit Provider Internal Medicine
DX: L97.812 Non-pressure chronic ulcer of other part of right lower leg with fat layer exposed (principal); G82.20 Paraplegia, unspecified
CPT/HCPCS: 11042

== ENCOUNTER 2018-11-16 09:45 | Outpatient (RCR) | payer MEDICARE, MEDICAID, SELFPAY ==
[2018-10-29 01:14] VITALS: BP 112/68; PULSE 98; RESP 18; TEMP 37.3
[2018-11-09 09:49] VITALS: BP 102/75; PULSE 101; RESP 16; TEMP 37
--- NOTE | 2018-11-09 10:52 | PCM.WC.PN ---
(1) Ulcer of right lower extremity with fat layer exposed Status: Chronic Current Visit: No Code(s): L97.912 - Non-pressure chronic ulcer of unspecified part of right lower leg with fat layer exposed (2) Paraplegia Status: Chronic Current Visit: No Code(s): G82.20 - Paraplegia, unspecified (3) Spina bifida Status: Chronic Current Visit: Yes Code(s): Q05.9 - Spina bifida, unspecified Type of Wound Chief Complaint: R lower extremity ulcer. History of Wound: Ms. Mcdaniel is a pleasent 47 year old with PMH as stated above who presents to the wound center with history of R Lower extremity ulcer. Unsure about the origin however, it was noted by her urgent care physician in July 2018. She has been applying antibiotic ointment daily without significant improvement. She otherwise feels well. Progress of Wound: Improving. No new complaints at this time. - Physical Exam Vital Signs Temp Pulse Resp BP 98.6 F 101 H 16 102/75 11/09/18 09:49 11/09/18 09:49 11/09/18 09:49 11/09/18 09:49 General: Alert, Oriented x3, Cooperative, No apparent distress HEENT: Atraumatic, Normocephalic Oral: Moist Mucosa Neck: Supple Lungs: Normal air movement Abdomen: Non Tender Extremities: No cyanosis Skin: Ulcer/ Wound Wound Measurements and Assessment WC - Nurse 1 - General Ulcer Measurement Start: 11/09/18 09:46 Freq: Status: Active Protocol: Activity Type Activity Date Activity User E-Sign Co-Sign Detail Recorded Client Recorded Date Recorded By Document 11/09/18 09:49 [id number] 11/09/18 09:54 11/09/18 09:49 Wound Center Nurse 1 [Ulcer Assessment] #1 R Post LE -Combined with other wound No -Current Size (cm) - Length 0.7 -Current Size (cm) - Width 0.5 -Current Size (cm) - Depth 0.1 -Total Square Cm 0.35 -Photo Taken No -Epithelialization Medium 34-66% -Tunneling No -Undermining/Tunneling No -Circular Undermining No -Exudate Amt Small (1-33%) -Exudate Type Serosanguineous -Wound Margin Distinct, Outline Attached -Granulation Amt Medium (34-66%) -Granulation Quality Red -Slough/Fibrin Yes -Necrosis Amt Large (67-100%) -Necrotic Tissue Type Adherent Slough -Structure Exposed None/Limited to Skin Breakdown -Texture (Yudith-wound Skin Appearance) No Abnormality Assessed -Moisture (Yudith-wound Skin Appearance No Abnormality ) Assessed -Color (Yudith-wound Skin Appearance) No Abnormality Assessed -Temperature (Yudith-wound Skin No Abnormality Appearance) (Pt Warm) -Tenderness on Palpation (Yudith-wound No Skin Appearance) -Ulcer Cleansing Rinsed/ Irrigated with Saline -Foul Odor after Cleansing No -Anesthetic Used 5% Lidocaine Gel [Edema Assessment] -Lower Limb Edema Present NA WC - Nurse 2 - General Ulcer CM Notes Start: 11/09/18 09:46 Freq: Status: Active Protocol: Activity Type Activity Date Activity User E-Sign Co-Sign Detail Recorded Client Recorded Date Recorded By Document 11/09/18 10:11 MW [id number] 11/09/18 10:13 MW 11/09/18 10:11 Wound Center Nurse 2 [Procedure/Treatment] #1 R Post LE -Time 10:11 -Correct Patient Yes -Correct Side, Site, Position Yes -Correct Procedure Yes -Procedure Performed Yes -Type of Procedure Debridement -Clinical Debridement Subcutaneous -Post Debridement Size (cm) - Length 0.4 -Post Debridement Size (cm) - Width 0.3 -Post Debridement Size (cm) - Depth 0.1 -Total Square Cm 0.12 -Wound/Ulcer Outcome Not Healed -Ulcer Cleansing Rinsed/ Irrigated with Saline -Foul Odor after Cleansing No -Bioengineered Tissue No -Bleeding Controlled with Pressure -Offloading No -Treatment Response Procedure Tolerated Well [See Physician Procedure note for Specifics] Pain Scale: 0-10 Numeric [Pain] -Is Patient Pain Free? Yes Neurological: Cranial nerves II-XII grossly intact Psych/Mental Status: Normal Affect Debridement Note Post-Debridement Measurements/Treatment WC - Nurse 2 - General Ulcer CM Notes Start: 11/09/18 09:46 Freq: Status: Active Protocol: Activity Type Activity Date Activity User E-Sign Co-Sign Detail Recorded Client Recorded Date Recorded By Document 11/09/18 10:11 MW [id number] 11/09/18 10:13 MW 11/09/18 10:11 Wound Center Nurse 2 #1 R Post LE -Time 10:11 -Correct Patient Yes -Correct Side, Site, Position Yes -Correct Procedure Yes -Procedure Performed Yes -Type of Procedure Debridement -Clinical Debridement Subcutaneous -Post Debridement Size (cm) - Length 0.4 -Post Debridement Size (cm) - Width 0.3 -Post Debridement Size (cm) - Depth 0.1 -Total Square Cm 0.12 -Wound/Ulcer Outcome Not Healed -Ulcer Cleansing Rinsed/ Irrigated with Saline -Foul Odor after Cleansing No -Bioengineered Tissue No -Bleeding Controlled with Pressure -Offloading No -Treatment Response Procedure Tolerated Well Pain Scale: 0-10 Numeric Is Patient Pain Free? Yes Wound debrided: Right lower extremity Wound Grade/Stage: Stage II Type of Debridement: Excisional debridement Anesthesia Used: 4% Lidocaine Solution Depth: Down to and including healthy tissue, in the subcutaneous layer Percentage of wound debrided: 100 Instrument Used: 3mm curette Tissue Removed: Slough and devitalized tissue Severity: Fat Layer Exposed Amount of bleeding with debridement: Mild Bleeding Controlled with: Pressure Patient tolerated procedure well Assessment/Plan Active Problems Spina bifida (Chronic) Assessment: Right lower extremity ulcer with fat layer exposed, poor healing. Plan: Improving. Debridement done as documented above, procedure was well-tolerated. Continue edouard with adaptic over top. Change daily. Increased protein intake recommended. Prealbumin borderline. All her questions were answered and she was advised to call with any further concerns. Follow up in 1 week. This note was generated with [employer] software. It may contain incorrect words, spelling, and punctuation that were not noted in checking the note before signing.
--- NOTE | 2018-11-09 10:55 | PN.PCM_ITS ---
(1) Ulcer of right lower extremity with fat layer exposed Status: Chronic Current Visit: No Code(s): L97.912 - Non-pressure chronic ulcer of unspecified part of right lower leg with fat layer exposed (2) Paraplegia Status: Chronic Current Visit: No Code(s): G82.20 - Paraplegia, unspecified (3) Spina bifida Status: Chronic Current Visit: Yes Code(s): Q05.9 - Spina bifida, unspecified Type of Wound Chief Complaint: R lower extremity ulcer. History of Wound: Ms. Mcdaniel is a pleasent 47 year old with PMH as stated above who presents to the wound center with history of R Lower extremity ulcer. Unsure about the origin however, it was noted by her career development director in July 2018. She has been applying antibiotic ointment daily without significant improvement. She otherwise feels well. Progress of Wound: Improving. No new complaints at this time. - Physical Exam Vital Signs Temp Pulse Resp BP 98.6 F 101 H 16 102/75 11/09/18 09:49 11/09/18 09:49 11/09/18 09:49 11/09/18 09:49 General: Alert, Oriented x3, Cooperative, No apparent distress HEENT: Atraumatic, Normocephalic Oral: Moist Mucosa Neck: Supple Lungs: Normal air movement Abdomen: Non Tender Extremities: No cyanosis Skin: Ulcer/ Wound Wound Measurements and Assessment WC - Nurse 1 - General Ulcer Measurement Start: 11/09/18 09:46 Freq: Status: Active Protocol: Activity Type Activity Date Activity User E-Sign Co-Sign Detail Recorded Client Recorded Date Recorded By Document 11/09/18 09:49 [id number] 11/09/18 09:54 11/09/18 09:49 Wound Center Nurse 1 [Ulcer Assessment] #1 R Post LE -Combined with other wound No -Current Size (cm) - Length 0.7 -Current Size (cm) - Width 0.5 -Current Size (cm) - Depth 0.1 -Total Square Cm 0.35 -Photo Taken No -Epithelialization Medium 34-66% -Tunneling No -Undermining/Tunneling No -Circular Undermining No -Exudate Amt Small (1-33%) -Exudate Type Serosanguineous -Wound Margin Distinct, Outline Attached -Granulation Amt Medium (34-66%) -Granulation Quality Red -Slough/Fibrin Yes -Necrosis Amt Large (67-100%) -Necrotic Tissue Type Adherent Slough -Structure Exposed None/Limited to Skin Breakdown -Texture (Yudith-wound Skin Appearance) No Abnormality Assessed -Moisture (Yudith-wound Skin Appearance No Abnormality ) Assessed -Color (Yudith-wound Skin Appearance) No Abnormality Assessed -Temperature (Yudith-wound Skin No Abnormality Appearance) (Pt Warm) -Tenderness on Palpation (Yudith-wound No Skin Appearance) -Ulcer Cleansing Rinsed/ Irrigated with Saline -Foul Odor after Cleansing No -Anesthetic Used 5% Lidocaine Gel [Edema Assessment] -Lower Limb Edema Present NA WC - Nurse 2 - General Ulcer CM Notes Start: 11/09/18 09:46 Freq: Status: Active Protocol: Activity Type Activity Date Activity User E-Sign Co-Sign Detail Recorded Client Recorded Date Recorded By Document 11/09/18 10:11 MW [id number] 11/09/18 10:13 MW 11/09/18 10:11 Wound Center Nurse 2 [Procedure/Treatment] #1 R Post LE -Time 10:11 -Correct Patient Yes -Correct Side, Site, Position Yes -Correct Procedure Yes -Procedure Performed Yes -Type of Procedure Debridement -Clinical Debridement Subcutaneous -Post Debridement Size (cm) - Length 0.4 -Post Debridement Size (cm) - Width 0.3 -Post Debridement Size (cm) - Depth 0.1 -Total Square Cm 0.12 -Wound/Ulcer Outcome Not Healed -Ulcer Cleansing Rinsed/ Irrigated with Saline -Foul Odor after Cleansing No -Bioengineered Tissue No -Bleeding Controlled with Pressure -Offloading No -Treatment Response Procedure Tolerated Well [See Physician Procedure note for Specifics] Pain Scale: 0-10 Numeric [Pain] -Is Patient Pain Free? Yes Neurological: Cranial nerves II-XII grossly intact Psych/Mental Status: Normal Affect Debridement Note Post-Debridement Measurements/Treatment WC - Nurse 2 - General Ulcer CM Notes Start: 11/09/18 09:46 Freq: Status: Active Protocol: Activity Type Activity Date Activity User E-Sign Co-Sign Detail Recorded Client Recorded Date Recorded By Document 11/09/18 10:11 MW [id number] 11/09/18 10:13 MW 11/09/18 10:11 Wound Center Nurse 2 #1 R Post LE -Time 10:11 -Correct Patient Yes -Correct Side, Site, Position Yes -Correct Procedure Yes -Procedure Performed Yes -Type of Procedure Debridement -Clinical Debridement Subcutaneous -Post Debridement Size (cm) - Length 0.4 -Post Debridement Size (cm) - Width 0.3 -Post Debridement Size (cm) - Depth 0.1 -Total Square Cm 0.12 -Wound/Ulcer Outcome Not Healed -Ulcer Cleansing Rinsed/ Irrigated with Saline -Foul Odor after Cleansing No -Bioengineered Tissue No -Bleeding Controlled with Pressure -Offloading No -Treatment Response Procedure Tolerated Well Pain Scale: 0-10 Numeric Is Patient Pain Free? Yes Wound debrided: Right lower extremity Wound Grade/Stage: Stage II Type of Debridement: Excisional debridement Anesthesia Used: 4% Lidocaine Solution Depth: Down to and including healthy tissue, in the subcutaneous layer Percentage of wound debrided: 100 Instrument Used: 3mm curette Tissue Removed: Slough and devitalized tissue Severity: Fat Layer Exposed Amount of bleeding with debridement: Mild Bleeding Controlled with: Pressure Patient tolerated procedure well Assessment/Plan Active Problems Spina bifida (Chronic) Assessment: Right lower extremity ulcer with fat layer exposed, poor healing. Plan: Improving. Debridement done as documented above, procedure was well- tolerated. Continue edouard with adaptic over top. Change daily. Increased protein intake recommended. Prealbumin borderline. All her questions were answered and she was advised to call with any further concerns. Follow up in 1 week. This note was generated with [employer] software. It may contain incorrect words, spelling, and punctuation that were not noted in checking the note before signing.
[2018-11-16 10:08] VITALS: BP 103/67; PULSE 97; RESP 16; TEMP 36.9
--- NOTE | 2018-11-16 11:27 | PCM.WC.PN ---
(1) Ulcer of right lower extremity with fat layer exposed Status: Chronic Current Visit: No Code(s): L97.912 - Non-pressure chronic ulcer of unspecified part of right lower leg with fat layer exposed (2) Paraplegia Status: Chronic Current Visit: No Code(s): G82.20 - Paraplegia, unspecified (3) Spina bifida Status: Chronic Current Visit: Yes Code(s): Q05.9 - Spina bifida, unspecified Type of Wound Chief Complaint: R lower extremity ulcer. History of Wound: Ms. Mcdaniel is a pleasent 47 year old with PMH as stated above who presents to the wound center with history of R Lower extremity ulcer. Unsure about the origin however, it was noted by her client care consultant in July 2018. She has been applying antibiotic ointment daily without significant improvement. She otherwise feels well. Progress of Wound: Healed. - Physical Exam Vital Signs Temp Pulse Resp BP 98.4 F 97 16 103/67 11/16/18 10:08 11/16/18 10:08 11/16/18 10:08 11/16/18 10:08 General: Alert, Oriented x3, Cooperative, No apparent distress HEENT: Atraumatic Oral: Moist Mucosa Neck: Supple Lungs: Normal air movement Extremities: No cyanosis Wound Measurements and Assessment WC - Nurse 1 - General Ulcer Measurement Start: 11/09/18 09:46 Freq: Status: Active Protocol: Activity Type Activity Date Activity User E-Sign Co-Sign Detail Recorded Client Recorded Date Recorded By Document 11/16/18 10:08 [id number] 11/16/18 10:09 11/16/18 10:08 Wound Center Nurse 1 [Ulcer Assessment] #1 R Post LE -Combined with other wound No -Current Size (cm) - Length 0.1 -Current Size (cm) - Width 0.1 -Current Size (cm) - Depth 0.1 -Total Square Cm 0.01 -Photo Taken No -Epithelialization Medium 34-66% -Tunneling No -Undermining/Tunneling No -Circular Undermining No -Exudate Amt None Present (0 %) -Granulation Amt Small (1-33%) -Granulation Quality Red -Slough/Fibrin Yes -Necrosis Amt None Present (0 %) -Necrotic Tissue Type Adherent Slough -Texture (Yudith-wound Skin Appearance) Scarring -Moisture (Yudith-wound Skin Appearance No Abnormality ) Assessed -Color (Yudith-wound Skin Appearance) No Abnormality Assessed -Temperature (Yudith-wound Skin No Abnormality Appearance) (Pt Warm) -Tenderness on Palpation (Yudith-wound No Skin Appearance) -Ulcer Cleansing Rinsed/ Irrigated with Saline -Foul Odor after Cleansing No -Anesthetic Used 5% Lidocaine Gel [Edema Assessment] -Lower Limb Edema Present NA - Nurse 2 - General Ulcer CM Notes Start: 11/09/18 09:46 Freq: Status: Active Protocol: Activity Type Activity Date Activity User E-Sign Co-Sign Detail Recorded Client Recorded Date Recorded By Document 11/16/18 10:33 MW [id number] 11/16/18 10:35 MW 11/16/18 10:33 Wound Center Nurse 2 [Procedure/Treatment] #1 R Post LE -Time 10:34 -Correct Patient Yes -Correct Side, Site, Position Yes -Correct Procedure Yes -Procedure Performed No -Post Debridement Size (cm) - Length 0 -Post Debridement Size (cm) - Width 0 -Post Debridement Size (cm) - Depth 0 -Total Square Cm 0 -Wound/Ulcer Outcome Healed- Epithelialized [See Physician Procedure note for Specifics] Pain Scale: 0-10 Numeric [Pain] -Is Patient Pain Free? Yes Neurological: Cranial nerves II-XII grossly intact Psych/Mental Status: Normal Affect Debridement Note Post-Debridement Measurements/Treatment - Nurse 2 - General Ulcer CM Notes Start: 11/09/18 09:46 Freq: Status: Active Protocol: Activity Type Activity Date Activity User E-Sign Co-Sign Detail Recorded Client Recorded Date Recorded By Document 11/09/18 10:11 MW [id number] 11/09/18 10:13 MW Document 11/16/18 10:33 MW [id number] 11/16/18 10:35 MW 11/09/18 11/16/18 10:11 10:33 Wound Center Nurse 2 #1 R Post LE -Time 10:11 10:34 -Correct Patient Yes Yes -Correct Side, Site, Position Yes Yes -Correct Procedure Yes Yes -Procedure Performed Yes No -Type of Procedure Debridement -Clinical Debridement Subcutaneous -Post Debridement Size (cm) - Length 0.4 0 -Post Debridement Size (cm) - Width 0.3 0 -Post Debridement Size (cm) - Depth 0.1 0 -Total Square Cm 0.12 0 -Wound/Ulcer Outcome Not Healed Healed- Epithelialized -Ulcer Cleansing Rinsed/ Irrigated with Saline -Foul Odor after Cleansing No -Bioengineered Tissue No -Bleeding Controlled with Pressure -Offloading No -Treatment Response Procedure Tolerated Well Pain Scale: 0-10 Numeric Is Patient Pain Free? Yes Yes No debridement was completed today Assessment/Plan Active Problems Spina bifida (Chronic) Assessment: Right lower extremity ulcer with fat layer exposed, poor healing. Plan: Ulcer is healed. Continue moistened Promogran with Adaptic over top for 1 week and Adaptic only for another. Avoid pressure to the area. Keep area protected. All her questions were answered and she was advised to call with any further concerns. Discharged from the wound clinic. This note was generated with [employer] dictation software. It may contain incorrect words, spelling, and punctuation that were not noted in checking the note before signing.
--- NOTE | 2018-11-16 11:30 | PN.PCM_ITS ---
(1) Ulcer of right lower extremity with fat layer exposed Status: Chronic Current Visit: No Code(s): L97.912 - Non-pressure chronic ulcer of unspecified part of right lower leg with fat layer exposed (2) Paraplegia Status: Chronic Current Visit: No Code(s): G82.20 - Paraplegia, unspecified (3) Spina bifida Status: Chronic Current Visit: Yes Code(s): Q05.9 - Spina bifida, unspecified Type of Wound Chief Complaint: R lower extremity ulcer. History of Wound: Ms. Mcdaniel is a pleasent 47 year old with PMH as stated above who presents to the wound center with history of R Lower extremity ulcer. Unsure about the origin however, it was noted by her career and technology education teacher in July 2018. She has been applying antibiotic ointment daily without significant improvement. She otherwise feels well. Progress of Wound: Healed. - Physical Exam Vital Signs Temp Pulse Resp BP 98.4 F 97 16 103/67 11/16/18 10:08 11/16/18 10:08 11/16/18 10:08 11/16/18 10:08 General: Alert, Oriented x3, Cooperative, No apparent distress HEENT: Atraumatic Oral: Moist Mucosa Neck: Supple Lungs: Normal air movement Extremities: No cyanosis Wound Measurements and Assessment WC - Nurse 1 - General Ulcer Measurement Start: 11/09/18 09:46 Freq: Status: Active Protocol: Activity Type Activity Date Activity User E-Sign Co-Sign Detail Recorded Client Recorded Date Recorded By Document 11/16/18 10:08 [id number] 11/16/18 10:09 11/16/18 10:08 Wound Center Nurse 1 [Ulcer Assessment] #1 R Post LE -Combined with other wound No -Current Size (cm) - Length 0.1 -Current Size (cm) - Width 0.1 -Current Size (cm) - Depth 0.1 -Total Square Cm 0.01 -Photo Taken No -Epithelialization Medium 34-66% -Tunneling No -Undermining/Tunneling No -Circular Undermining No -Exudate Amt None Present (0 %) -Granulation Amt Small (1-33%) -Granulation Quality Red -Slough/Fibrin Yes -Necrosis Amt None Present (0 %) -Necrotic Tissue Type Adherent Slough -Texture (Yudith-wound Skin Appearance) Scarring -Moisture (Yudith-wound Skin Appearance No Abnormality ) Assessed -Color (Yudith-wound Skin Appearance) No Abnormality Assessed -Temperature (Yudith-wound Skin No Abnormality Appearance) (Pt Warm) -Tenderness on Palpation (Yudith-wound No Skin Appearance) -Ulcer Cleansing Rinsed/ Irrigated with Saline -Foul Odor after Cleansing No -Anesthetic Used 5% Lidocaine Gel [Edema Assessment] -Lower Limb Edema Present NA - Nurse 2 - General Ulcer CM Notes Start: 11/09/18 09:46 Freq: Status: Active Protocol: Activity Type Activity Date Activity User E-Sign Co-Sign Detail Recorded Client Recorded Date Recorded By Document 11/16/18 10:33 MW [id number] 11/16/18 10:35 MW 11/16/18 10:33 Wound Center Nurse 2 [Procedure/Treatment] #1 R Post LE -Time 10:34 -Correct Patient Yes -Correct Side, Site, Position Yes -Correct Procedure Yes -Procedure Performed No -Post Debridement Size (cm) - Length 0 -Post Debridement Size (cm) - Width 0 -Post Debridement Size (cm) - Depth 0 -Total Square Cm 0 -Wound/Ulcer Outcome Healed- Epithelialized [See Physician Procedure note for Specifics] Pain Scale: 0-10 Numeric [Pain] -Is Patient Pain Free? Yes Neurological: Cranial nerves II-XII grossly intact Psych/Mental Status: Normal Affect Debridement Note Post-Debridement Measurements/Treatment - Nurse 2 - General Ulcer CM Notes Start: 11/09/18 09:46 Freq: Status: Active Protocol: Activity Type Activity Date Activity User E-Sign Co-Sign Detail Recorded Client Recorded Date Recorded By Document 11/09/18 10:11 MW [id number] 11/09/18 10:13 MW Document 11/16/18 10:33 MW [id number] 11/16/18 10:35 MW 11/09/18 11/16/18 10:11 10:33 Wound Center Nurse 2 #1 R Post LE -Time 10:11 10:34 -Correct Patient Yes Yes -Correct Side, Site, Position Yes Yes -Correct Procedure Yes Yes -Procedure Performed Yes No -Type of Procedure Debridement -Clinical Debridement Subcutaneous -Post Debridement Size (cm) - Length 0.4 0 -Post Debridement Size (cm) - Width 0.3 0 -Post Debridement Size (cm) - Depth 0.1 0 -Total Square Cm 0.12 0 -Wound/Ulcer Outcome Not Healed Healed- Epithelialized -Ulcer Cleansing Rinsed/ Irrigated with Saline -Foul Odor after Cleansing No -Bioengineered Tissue No -Bleeding Controlled with Pressure -Offloading No -Treatment Response Procedure Tolerated Well Pain Scale: 0-10 Numeric Is Patient Pain Free? Yes Yes No debridement was completed today Assessment/Plan Active Problems Spina bifida (Chronic) Assessment: Right lower extremity ulcer with fat layer exposed, poor healing. Plan: Ulcer is healed. Continue moistened Promogran with Adaptic over top for 1 week and Adaptic only for another. Avoid pressure to the area. Keep area protected. All her questions were answered and she was advised to call with any further concerns. Discharged from the wound clinic. This note was generated with [employer] dictation software. It may contain incorrect words, spelling, and punctuation that were not noted in checking the note before signing.
--- OUTSIDE RECORDS SUMMARY | 2018-12-26 03:24 | XMS RPT_ITS ---
:1970 Author Organization OHIP Support Name Relationship Address Phone YANG MICAH Unavailable Unavailable + POOJA PARIKH Unavailable [address] + [place] [address] [facility] Unavailable [address] + [place] [address] YANG MICAH Unavailable Unavailable + POOJA PARIKH Unavailable [address] + [place] [address] [facility] Unavailable [address] + [place] [address] YANG MICAH Unavailable Unavailable + POOJA PARIKH Unavailable [address] + [place] [address] [facility] Unavailable [address] + [place] [address] KORI SORIADA Unavailable Unavailable + POOJA PARIKH Unavailable [address] + [place] [address] [facility] Unavailable [address] + [place] [address] YANG, MICAH Unavailable Unavailable + POOJA PARIKH Unavailable [facility] [address] + [place] [address] [facility] Unavailable [address] + [place] [address] KORI SORIADA Unavailable Unavailable + POOJA PARIKH Unavailable [facility] [address] + [place] [address] [facility] Unavailable [address] + [place] [address] MICAH SORIA Unavailable Unavailable + POOJA PARIKH Unavailable [address] + [place] [address] [facility] Unavailable [address] + [place] [address] MICAH SORIA Unavailable Unavailable + POOJA PARIKH Unavailable [facility] [address] + [place] [address] [facility] Unavailable [address] + [place] [address] KORI SORIADA Unavailable Unavailable + POOJA PARIKH Unavailable [facility] + [place] [address] [facility] Unavailable [address] + [place] [address] MICAH SORIA Unavailable Unavailable + POOJA PARIKH Unavailable [facility] + [place] [address] [facility] Unavailable [address] + [place] [address] MICAH SORIA Unavailable Unavailable + POOJA PARIKH Unavailable [facility] [address] + [place] [address] [facility] Unavailable [address] + [place] [address] MICAH SORIA Unavailable Unavailable + POOJA PARIKH Unavailable [facility] [address] + [place] [address] [facility] Unavailable [address] + [place] [address] MICAH SORIA Unavailable Unavailable + POOJA PARIKH Unavailable [facility] [address] + [place] [address] [facility] Unavailable [address] + [place] [address] MICAH SORIA Unavailable Unavailable + POOJA PARIKH Unavailable [address] + [place] [address] [facility] Unavailable [address] + [place] [address] MICAH SORIA Unavailable Unavailable + POOJA PARIKH Unavailable [address] + [place] [address] [facility] Unavailable [address] + [place] [id number] Care Team Providers Name Role Phone BORA SCHNEIDER () Attending Unavailable DANN CAVANAUGH (PATO) Attending Unavailable Oleghe, Efewongbe Attending Unavailable Oleghe, Efewongbe Referring Unavailable Oleghe, Efewongbe Attending Unavailable Oleghe, Efewongbe Referring Unavailable [facility] Unavailable Oleghe, Efewongbe Attending Unavailable [facility]available Oleghe, Efewongbe Referring Unavailable Oleghe, Efewongbe Attending Unavailable Oleghe, Efewongbe Referring [facility] Oleghe, Efewongbe Attending Unavailable Oleghe, Efewongbe Referring Unavailable Oleghe, Efewongbe Attending Unavailable Oleghe, Efewongbe Attending Unavailable Oleghe, Efewongbe Referring Unavailable Oleghe, Efewongbe Attending Unavailable Oleghe, Efewongbe Referring Unavailable Oleghe, Efewongbe Attending Unavailable Oleghe, Efewongbe Referring Unavailable Oleghe, Efewongbe Attending Unavailable Oleghe, Efewongbe Referring Unavailable Oleghe, Efewongbe Attending Unavailable Oleghe, Efewongbe Referring [facility] Oleghe, Efewongbe Attending Unavailable Oleghe, Efewongbe Referring Unavailable Oleghe, Efewongbe Attending Unavailable Oleghe, Efewongbe Referring Unavailable Oleghe, Efewongbe Attending Unavailable Oleghe, Efewongbe Referring Unavailable Oleghe, Efewongbe Attending Unavailable Oleghe, Efewongbe Referring Un[facility] Unavailable PROBLEMS PROBLEMS DATE TYPE CONDITION / CODE ATTENDING STATUS SOURCE 11/30/2018 Unknown L97.912 - Oleghe, Efewongbe Active [place] [facility] chronic ulcer of Hospital unspecified part Repository of right lower leg with fat layer exposed / L97.912(ICD-10) 11/30/2018 Unknown G82.20 - Sheryl Thao Active [place] Paraplegia, Community unspecified / Hospital G82.20(ICD-10) Repository 11/30/2018 Unknown Q05.9 - Spina Sheryl Thao Active [place] bifida, Community unspecified / Hospital Q05.9(ICD-10) Repository 09/02/2018 Active Unknown / [place], Active [facility] UNK(Unknown) BORA Bo [facility] () Repository 09/29/2018 Unknown L97.812 - Sheryl Thao Active [place] [facility]pressure [facility] chronic ulcer of Hospital other part of Repository right lower leg with fat layer exposed / L97.812(ICD-10) PROCEDURES PROCEDURES No Procedure Records FoundRESULTS RESULTS LOWER EXT ARTERIAL Observed: 09/22/2018 Status: F Source: [place] [facility] 7:26 PM [facility] REPOSITORY [facility] Cardiovascular Services [address] [place] [address] 09/22/18 1920 MR#: [id number] Acct: [id number] Name: YUN MCDANIEL Rep #: [id number] : 1970 47 From: Que Arevalo MD Attending Dr: Sheryl Thao MD Status: REG RCR Ordering Dr: Date: 09/22/18 Location: [facility] Sex: F C Admitted: Arterial Study - Arterial Study Arterial Study: This is a 47-year-old female with a history of peripheral arterial occlusive disease. She is brought to the noninvasive vascular laboratory at this time for the purpose of bilateral noninvasive lower extremity arterial assessment. Doppler signal assessment was used to evaluate the pulses at ankle level bilaterally. The posterior tibial and dorsalis pedis pulses were triphasic bilaterally. Segmental limb pressures were obtained at ankle level bilaterally. The right ankle pressure, as determined by posterior tibial pulse, was measured at 122 mmHg. The right ankle pressure, as determined by dorsalis pedis pulse, was measured at 115 mmHg. The left ankle pressure, as determined by posterior tibial pulse, was measured at 112 mmHg. The left ankle pressure, as determined by dorsalis pedis pulse, was measured at 115 mmHg. Pulse volume recordings were obtained bilaterally and segmentally. Waveform amplitudes appeared to be satisfactory at all levels bilaterally, including low thigh, calf, ankle, and digital levels. Resting ankle brachial indices were calculated bilaterally. The resting right ankle brachial index was calculated to be 1.15. The resting left ankle brachial index was calculated to be 1.08. Impression: Based upon the findings of this resting noninvasive lower extremity arterial study, there is no evidence of significant atherosclerotic peripheral arterial occlusive disease in the lower extremities bilaterally. Triphasic waveforms were noted at ankle level bilaterally. Resting ankle brachial indices were bilaterally normal. In summary, this represents a normal resting noninvasive lower extremity arterial study bilaterally. 09/22/181925 <Electronically signed by Que Arevalo MD> Date Que Arevalo MD CC: Aurelio Schneider MD; Sheryl Thao MD Date Dictated: 09/22/181919 Date Transcribed: 09/22/181919 Vegetable Thinner: SARI ANDERSON Observed: 09/02/2018 Status: COMPLETED Source: [place] 2:00 PM [facility] REPOSITORY Office Visit (FAMPWS) YUN MCDANIEL ([id number]) 1970 F Date Time Provider Department 09/02/18 2:00 PM BORA SCHNEIDER) FAMPWS During your visit today, we recorded the following information about you: Pulse Respiration Blood pressure Weight 64/minute 18/minute 118/62 37.2 kg Bora Schneider MD 09/02/2018 3:18 PM Signed Chief Complaint Patient presents with: Physical HPI Yun Mcdaniel is a 47 year old female who presents here today for annual physical. Here today with caregiver. In good spirits. Excited to show off her purple hair. Followed up with Dr. Blancas yesterday for psychiatry. Advised increased dose of Buspar to 7.5 mg BID as she was feeling more anxious. Has follow up appointment in October. Going to counseling every 2 weeks. Depression symptoms controlled on current regimen. Labs obtained on 08/11 with normal CBC and CMP low creatinine ad AST, otherwise normal. Lipid panel not obtained. Due for screening mammogram, but patient says her Aunt (legal guardian) says no more after last year. Feels she is too low to the ground and doesn't want her to have them anymore. Has wound on right leg which has been present for at least 2 months. Following up with wound care once per week. Applying dressing daily and seems to be healing slowly. Up to date on immunizations. Past medical history, appointments, medications, allergies reviewed. Previous Medical History PAST MEDICAL HISTORY Diagnosis Date - Anxiety, dissociative and somatoform disorders ANXIETY - Depressive disorder, not elsewhere classified Seeing psych-Dr. 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 Details unclear. Family History FAMILY HISTORY Problem Relation Age of Onset - Heart Mother - Emphysema Mother - COPD Mother - Breast Cancer Mother - Cancer Mother liver cancer - metastatic from breast cancer Patient Allergies ALLERGIES No Known Allergies Current Medications Current Outpatient Prescriptions on File Prior to Visit: busPIRone (BUSPAR) 5 mg tablet Take 5 mg by mouth twice daily. escitalopram oxalate (LEXAPRO) 10 mg tablet Take 10 mg by mouth once daily. Diaper,Brief, Adult,Disposable misc Use as needed.(Q05.7) Spina bifida of lumbar region (HCC) (R15.1) Fecal soiling Catheter (SELF-CATHETER, FEMALE) 14 Fr misc Use one catheter daily, or more often as needed Underpads 30 X 30 pads Washable underpads: Use daily and as needed. loratadine (CLARITIN) 10 mg tablet Take 1 tablet by mouth once daily. diphenhydrAMINE HCl (BENADRYL MAXIMUM STRENGTH) spray Apply 1 application to affected area as needed. MELATONIN 3 MG TAB one tablet at bedtime THERAPEUTIC MULTIVITAMIN TAB Take one(1) tablet daily. ACETAMINOPHEN 325 MG TAB PRN No current facility-administered medications on file prior to visit. Social History Social History Marital status: Single Spouse name: Years of education: Number of children: 0 Occupational History Occupation Employer Comment [employer]* Social History Main Topics Smoking status: Never Smoker Smokeless tobacco: Never Used Alcohol use: No Drug use: No Sexual activity: No Comment: never SA Review of Symptoms REVIEW OF SYSTEMS GENERAL: No weight loss, malaise or fevers HEENT: Negative for frequent or significant headaches, No changes in hearing or vision, no nose bleeds or other nasal problems NECK: Negative for lumps, goiter, pain and significant neck swelling RESPIRATORY: Negative for cough, hemoptysis, wheezing, COPD, dyspnea or shortness of breath CARDIOVASCULAR: Negative for chest pain, leg swelling, hypertension, CHF or palpitations GI: No nausea, vomiting, or diarrhea : No history of dysuria, frequency or incontinence MANAGER OF DISTRIBUTION: Negative for abnormal vaginal bleeding, abnormal vaginal discharge MUSCULOSKELETAL: Negative for joint pain or swelling, back pain or muscle pain SKIN: ulcer on the back of her right leg which has been present for 2 months EXAM: BP 118/62 (BP Site: Right Arm, BP Position: Sitting, BP Cuff Size: Regular Adult) Pulse 64 Resp 18 Wt 37.2 kg (82 lb) General Appearance: Well appearing, alert, in no acute distress, well-hydrated, well nourished. Wheelchair bound. Skin: 1-2 cm stage 3 ulcer on right lateral calf with dressing in place. No surrounding cellulitis or drainage. Head: Normocephalic, no masses, lesions, tenderness or abnormalities. Eyes: Anicteric sclera. Pupils are equally round and reactive to light. Extraocular movements are intact. . Ears: External ears normal, canals clear. Oropharynx: Positive findings: thrush. Neck: Supple, no adenopathy; thyroid symmetric, normal size, no bruits. Lungs: Lungs clear to auscultation. No wheezing, rhonchi, rales. Heart: RRR without murmur, gallop, or rubs. No ectopy. Abdomen: Normal abdominal exam, Abdomen soft, non-tender. Bowel sounds normal. No masses, organomegaly. Extremities: No deformities, edema, skin discoloration, clubbing or cyanosis. Good capillary refill. . Health Maintenance List PAP EVERY 5 YEARS due on 2001 HPV EVERY 5 YEARS due on 2001 MAMMOGRAM due on 05/12/2018 DIABETES SCREEN due on 09/17/2020 LIPID SCREEN due on 09/17/2022 DTAP,TDAP,TD(3 - Td) due on 10/23/2024 INFLUENZA Completed Data reviewed Component Latest Ref Rng AND Units 09/17/2017 WBC 3.70 - 11.00 k/uL 6.11 RBC 3.90 - 5.20 m/uL 4.80 Hemoglobin 11.5 - 15.5 g/dL 14.0 Hematocrit 36.0 - 46.0 % 45.2 MCV 80.0 - 100.0 fL 94.2 MCH 26.0 - 34.0 pG 29.2 MCHC 30.5 - 36.0 g/dL 31.0 RDW-CV 11.5 - 15.0 % 12.3 Platelet Count 150 - 400 k/uL 337 MPV 9.0 - 12.7 fL 9.5 Neut% % 67.5 Abs Neut (ANC) 1.45 - 7.50 k/uL 4.11 Lymph% % 20.6 Abs Lymph 1.00 - 4.00 k/uL 1.26 [place]% % 8.0 Abs [place] <0.87 k/uL 0.49 Eosin% % 2.9 Abs Eosin <0.46 k/uL 0.18 Baso% % 1.0 Abs Baso <0.11 k/uL 0.06 Nucleated Reds 0 /100 WBC 0.3 (H) Absolute nRBC <0.01 k/uL 0.02 (H) Diff Type Auto Diff Protein, Total 6.3 - 8.0 g/dL 7.2 Albumin 3.9 - 4.9 g/dL 4.2 Calcium 8.5 - 10.2 mg/dL 9.7 Bilirubin, Total 0.2 - 1.3 mg/dL 0.3 Alkaline Phosphatase 32 - 117 U/L 56 AST 13 - 35 U/L 23 Glucose 74 - 99 mg/dL 61 (L) BUN 7 - 21 mg/dL 11 Creatinine 0.58 - 0.96 mg/dL 0.49 (L) Sodium 136 - 144 mmol/L 142 Potassium 3.7 - 5.1 mmol/L 5.1 Chloride 97 - 105 mmol/L 105 CO2 22 - 30 mmol/L 24 Anion Gap 9 - 18 mmol/L 13 ALT 7 - 38 U/L 14 eGFR- >60 eGFR-All Other Races . >60 Triglyceride 30 - 149 mg/dL 73 Cholesterol, Total 100 - 199 mg/dL 215 (H) HDL Cholesterol >55 mg/dL 59 VLDL Cholesterol 6 - 40 mg/dL 15 LDL Cholesterol 60 - 129 mg/dL 141 (H) Fasting Time hrs 2 TC:HDL Ratio 1.00 - 5.00 3.64 LDL:HDL Ratio 0.50 - 3.55 2.39 Non HDL Cholesterol 90 - 159 mg/dL 156 ASSESSMENT/PLAN: 1. Annual physical exam - ICD9: V70.0, ICD10: Z00.00 (primary diagnosis) - Recommended calcium intake with supplements or by diet (goal of 6290-3208 mg/day - Check fasting lipid panel - Follow up for annual exam in one year. 2. Thrush, oral - ICD9: 112.0, ICD10: B37.0 Nystatin for 7-14 days as prescribed. To call if ineffective 3. Spina bifida of lumbar region, unspecified hydrocephalus presence (HCC) - ICD9: 741.93, ICD10: Q05.7 Chronic condition. Doing well with caregiver. Will recheck in 1 year. 4. Pressure ulcer of right leg, unspecified pressure ulcer stage - ICD9: 707.09, 707.20, ICD10: L89.899 Healing slowly. Weekly f/u with wound care. 5. Anxiety - ICD9: 300.00, ICD10: F41.9 Uncontrolled. To increase Buspar as recommended by psychiatry. F/u with psych in October. 6. Depression, major, recurrent, moderate (HCC) - ICD9: 296.32, ICD10: F33.1 Controlled on current regimen. Bora Schneider MD Referring Provider: SELF [200] Allergies As of Date: 09/02/2018 (No Known Allergies) Date Reviewed: 09/02/2018 Reviewed by: Celine Navarro - Fully Assessed Reason for Visit: Physical [83] Primary Visit Diagnosis:Annual physical exam [Z00.00] Other Visit Diagnoses:Thrush, oral [B37.0] Spina bifida of lumbar region, unspecified hydrocephalus presence (HCC) [Q05.7] Pressure ulcer of right leg, unspecified pressure ulcer stage [L89.899] Anxiety [F41.9] Depression, major, recurrent, moderate (HCC) [F33.1] Order(s):busPIRone (BUSPAR) 5 mg tabletTake 1.5 tablets by mouth twice daily.Disp: Rfl: nystatin (MYCOSTATIN) 100,000 unit/mL suspensionTake 5 mL by mouth four times daily for 7 days. 1tsp swish in mouth for several minutes, then swallow (or expectorate) 4 times daily until gone.Disp: 200 mLRfl: 1 Prescriptions as of 09/02/2018 Sig: BUSPIRONE 5 MG TABLET Take 1.5 tablets by mouth twi* ESCITALOPRAM 10 MG TABLET Take 10 mg by mouth once christel* DIAPER,BRIEF,ADULT,DISPOSABLE Use as needed.(Q05.7) Spina b* CATHETER 14 FR Use one catheter daily, or mo* UNDERPADS 30 X 30 Washable underpads: Use christel* LORATADINE 10 MG TABLET Take 1 tablet by mouth once d* DIPHENHYDRAMINE 2 % TOPICAL S* Apply 1 application to affect* MELATONIN 3 MG TABLET one tablet at bedtime THERAPEUTIC MULTIVITAMIN TABL* Take one(1) tablet daily. ACETAMINOPHEN 325 MG TABLET PRN NYSTATIN 100,000 UNIT/ML ORAL* Take 5 mL by mouth four times* Problem List As Of Date 09/02/2018 Noted Resolved Spina bifida of lumbar region (HCC) [Q05.7] INVALID FOR* INGROWING NAIL [L60.0] INVALID FOR*08/17/2006 DEPRESSIVE DISORDER NEC [F32.9] INVALID FOR* UNSOCIAL AGGRESS-UNSPEC [F91.1] INVALID FOR* ABNORMAL PULMONARY FUNC STUDY [R94.2] INVALID FOR* More... KYPHOSIS IN OTHER DIS [M40.10] INVALID FOR* SCOLIOSIS IN OTHER DIS [M41.50] INVALID FOR* History of Urinary Tract Infection [Z87.440] INVALID FOR* Urinary Retention with Incomplete Bladder Empty*INVALID FOR* Hyperlipidemia [E78.5] Prescriptions ordered this encounter Disp Refills Start End BUSPIRONE 5 MG TABLET 09/02/2018 Class: Med Update Route: ORAL Sig: Take 1.5 tablets by mouth twice daily. NYSTATIN 100,000 UNIT/ML ORAL SUSPEN* 200 * 1 09/02/2018 09/09/2018 Class: Print RX Route: ORAL Sig: Take 5 mL by mouth four times daily for 7 days. 1tsp swish in mouth for several minutes, then swallow (or expectorate) 4 times daily until gone. Medications Discontinued During This Encounter busPIRone (BUSPAR) 5 mg tablet 09/02/2018 Class: Historical Med Route: ORAL Sig: Take 5 mg by mouth twice daily. Disc: Reason for discontinue is not on file. Encounter Status:Closed by BORA SCHNEIDER MD on 09/02/18 PROGRESS Observed: 09/02/2018 Status: COMPLETED Source: [place] 1:55 PM [facility] REPOSITORY HNO ID: [id number] Author: Bora Bo () Wyatt Service: (none) Author Type: Physician Type: Progress Notes Filed: 09/02/2018 3:18 PM Note Text: Chief Complaint Patient presents with: Physical HPI Yun Mcdaniel is a 47 year old female who presents here today for annual physical. Here today with caregiver. In good spirits. Excited to show off her purple hair. Followed up with Dr. Blancas yesterday for psychiatry. Advised increased dose of Buspar to 7.5 mg BID as she was feeling more anxious. Has follow up appointment in October. Going to counseling every 2 weeks. Depression symptoms controlled on current regimen. Labs obtained on 08/11 with normal CBC and CMP low creatinine ad AST, otherwise normal. Lipid panel not obtained. Due for screening mammogram, but patient says her Aunt (legal guardian) says no more after last year. Feels she is too low to the ground and doesn't want her to have them anymore. Has wound on right leg which has been present for at least 2 months. Following up with wound care once per week. Applying dressing daily and seems to be healing slowly. Up to date on immunizations. Past medical history, appointments, medications, allergies reviewed. Previous Medical History PAST MEDICAL HISTORY Diagnosis Date - Anxiety, dissociative and somatoform disorders ANXIETY - Depressive disorder, not elsewhere classified Seeing psych-Dr. 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 Details unclear. Family History FAMILY HISTORY Problem Relation Age of Onset - Heart Mother - Emphysema Mother - COPD Mother - Breast Cancer Mother - Cancer Mother liver cancer - metastatic from breast cancer Patient Allergies ALLERGIES No Known Allergies Current Medications Current Outpatient Prescriptions on File Prior to Visit: busPIRone (BUSPAR) 5 mg tablet Take 5 mg by mouth twice daily. escitalopram oxalate (LEXAPRO) 10 mg tablet Take 10 mg by mouth once daily. Diaper,Brief, Adult,Disposable misc Use as needed.(Q05.7) Spina bifida of lumbar region (HCC) (R15.1) Fecal soiling Catheter (SELF-CATHETER, FEMALE) 14 Fr misc Use one catheter daily, or more often as needed Underpads 30 X 30 pads Washable underpads: Use daily and as needed. loratadine (CLARITIN) 10 mg tablet Take 1 tablet by mouth once daily. diphenhydrAMINE HCl (BENADRYL MAXIMUM STRENGTH) spray Apply 1 application to affected area as needed. MELATONIN 3 MG TAB one tablet at bedtime THERAPEUTIC MULTIVITAMIN TAB Take one(1) tablet daily. ACETAMINOPHEN 325 MG TAB PRN No current facility-administered medications on file prior to visit. Social History Social History Marital status: Single Spouse name: Years of education: Number of children: 0 Occupational History Occupation Employer Comment [employer]* Social History Main Topics Smoking status: Never Smoker Smokeless tobacco: Never Used Alcohol use: No Drug use: No Sexual activity: No Comment: never SA Review of Symptoms REVIEW OF SYSTEMS GENERAL: No weight loss, malaise or fevers HEENT: Negative for frequent or significant headaches, No changes in hearing or vision, no nose bleeds or other nasal problems NECK: Negative for lumps, goiter, pain and significant neck swelling RESPIRATORY: Negative for cough, hemoptysis, wheezing, COPD, dyspnea or shortness of breath CARDIOVASCULAR: Negative for chest pain, leg swelling, hypertension, CHF or palpitations GI: No nausea, vomiting, or diarrhea : No history of dysuria, frequency or incontinence MANAGER OF DISTRIBUTION: Negative for abnormal vaginal bleeding, abnormal vaginal discharge MUSCULOSKELETAL: Negative for joint pain or swelling, back pain or muscle pain SKIN: ulcer on the back of her right leg which has been present for 2 months EXAM: BP 118/62 (BP Site: Right Arm, BP Position: Sitting, BP Cuff Size: Regular Adult) Pulse 64 Resp 18 Wt 37.2 kg (82 lb) General Appearance: Well appearing, alert, in no acute distress, well-hydrated, well nourished. Wheelchair bound. Skin: 1-2 cm stage 3 ulcer on right lateral calf with dressing in place. No surrounding cellulitis or drainage. Head: Normocephalic, no masses, lesions, tenderness or abnormalities. Eyes: Anicteric sclera. Pupils are equally round and reactive to light. Extraocular movements are intact. . Ears: External ears normal, canals clear. Oropharynx: Positive findings: thrush. Neck: Supple, no adenopathy; thyroid symmetric, normal size, no bruits. Lungs: Lungs clear to auscultation. No wheezing, rhonchi, rales. Heart: RRR without murmur, gallop, or rubs. No ectopy. Abdomen: Normal abdominal exam, Abdomen soft, non-tender. Bowel sounds normal. No masses, organomegaly. Extremities: No deformities, edema, skin discoloration, clubbing or cyanosis. Good capillary refill. . Health Maintenance List PAP EVERY 5 YEARS due on 2001 HPV EVERY 5 YEARS due on 2001 MAMMOGRAM due on 05/12/2018 DIABETES SCREEN due on 09/17/2020 LIPID SCREEN due on 09/17/2022 DTAP,TDAP,TD(3 - Td) due on 10/23/2024 INFLUENZA Completed Data reviewed Component Latest Ref Rng AND Units 09/17/2017 WBC 3.70 - 11.00 k/uL 6.11 RBC 3.90 - 5.20 m/uL 4.80 Hemoglobin 11.5 - 15.5 g/dL 14.0 Hematocrit 36.0 - 46.0 % 45.2 MCV 80.0 - 100.0 fL 94.2 MCH 26.0 - 34.0 pG 29.2 MCHC 30.5 - 36.0 g/dL 31.0 RDW-CV 11.5 - 15.0 % 12.3 Platelet Count 150 - 400 k/uL 337 MPV 9.0 - 12.7 fL 9.5 Neut% % 67.5 Abs Neut (ANC) 1.45 - 7.50 k/uL 4.11 Lymph% % 20.6 Abs Lymph 1.00 - 4.00 k/uL 1.26 [place]% % 8.0 Abs [place] <0.87 k/uL 0.49 Eosin% % 2.9 Abs Eosin <0.46 k/uL 0.18 Baso% % 1.0 Abs Baso <0.11 k/uL 0.06 Nucleated Reds 0 /100 WBC 0.3 (H) Absolute nRBC <0.01 k/uL 0.02 (H) Diff Type Auto Diff Protein, Total 6.3 - 8.0 g/dL 7.2 Albumin 3.9 - 4.9 g/dL 4.2 Calcium 8.5 - 10.2 mg/dL 9.7 Bilirubin, Total 0.2 - 1.3 mg/dL 0.3 Alkaline Phosphatase 32 - 117 U/L 56 AST 13 - 35 U/L 23 Glucose 74 - 99 mg/dL 61 (L) BUN 7 - 21 mg/dL 11 Creatinine 0.58 - 0.96 mg/dL 0.49 (L) Sodium 136 - 144 mmol/L 142 Potassium 3.7 - 5.1 mmol/L 5.1 Chloride 97 - 105 mmol/L 105 CO2 22 - 30 mmol/L 24 Anion Gap 9 - 18 mmol/L 13 ALT 7 - 38 U/L 14 eGFR- >60 eGFR-All Other Races . >60 Triglyceride 30 - 149 mg/dL 73 Cholesterol, Total 100 - 199 mg/dL 215 (H) HDL Cholesterol >55 mg/dL 59 VLDL Cholesterol 6 - 40 mg/dL 15 LDL Cholesterol 60 - 129 mg/dL 141 (H) Fasting Time hrs 2 TC:HDL Ratio 1.00 - 5.00 3.64 LDL:HDL Ratio 0.50 - 3.55 2.39 Non HDL Cholesterol 90 - 159 mg/dL 156 ASSESSMENT/PLAN: 1. Annual physical exam - ICD9: V70.0, ICD10: Z00.00 (primary diagnosis) - Recommended calcium intake with supplements or by diet (goal of 3046-2679 mg/day - Check fasting lipid panel - Follow up for annual exam in one year. 2. Thrush, oral - ICD9: 112.0, ICD10: B37.0 Nystatin for 7-14 days as prescribed. To call if ineffective 3. Spina bifida of lumbar region, unspecified hydrocephalus presence (HCC) - ICD9: 741.93, ICD10: Q05.7 Chronic condition. Doing well with caregiver. Will recheck in 1 year. 4. Pressure ulcer of right leg, unspecified pressure ulcer stage - ICD9: 707.09, 707.20, ICD10: L89.899 Healing slowly. Weekly f/u with wound care. 5. Anxiety - ICD9: 300.00, ICD10: F41.9 Uncontrolled. To increase Buspar as recommended by psychiatry. F/u with psych in October. 6. Depression, major, recurrent, moderate (HCC) - ICD9: 296.32, ICD10: F33.1 Controlled on current regimen. Bora Schneider MD [facility] Observed: 08/16/2018 Status: COMPLETED Source: [place] 12:00 AM [facility] REPOSITORY Patient Outreach (FAMPST) YUN MCDANIEL ([id number]) 1970 F Date Time Provider Department 08/16/18 BORA SCHNEIDER) FAMPST During your visit today, we recorded the following information about you: Allergies As of Date: 08/16/2018 (No Known Allergies) Date Reviewed: 08/03/2018 Reviewed by: Emy Ellis LPN - Fully Assessed Visit Diagnosis:Medication management [Z79.899] Order(s):LIPID PANEL BASIC [SQLIPB] Order #: [id number] FUTURE Prescriptions as of 08/16/2018 Sig: ESCITALOPRAM 10 MG TABLET Take 10 mg by mouth once christel* X BUSPIRONE 5 MG TABLET Take 5 mg by mouth twice christel* DIAPER,BRIEF,ADULT,DISPOSABLE Use as needed.(Q05.7) Spina b* CATHETER 14 FR Use one catheter daily, or mo* UNDERPADS 30 X 30 Washable underpads: Use christel* LORATADINE 10 MG TABLET Take 1 tablet by mouth once d* DIPHENHYDRAMINE 2 % TOPICAL S* Apply 1 application to affect* MELATONIN 3 MG TABLET one tablet at bedtime THERAPEUTIC MULTIVITAMIN TABL* Take one(1) tablet daily. ACETAMINOPHEN 325 MG TABLET PRN Problem List As Of Date 08/16/2018 Noted Resolved Spina bifida of lumbar region (HCC) [Q05.7] INVALID FOR* INGROWING NAIL [L60.0] INVALID FOR*08/17/2006 DEPRESSIVE DISORDER NEC [F32.9] INVALID FOR* UNSOCIAL AGGRESS-UNSPEC [F91.1] INVALID FOR* ABNORMAL PULMONARY FUNC STUDY [R94.2] INVALID FOR* More... KYPHOSIS IN OTHER DIS [M40.10] INVALID FOR* SCOLIOSIS IN OTHER DIS [M41.50] INVALID FOR* History of Urinary Tract Infection [Z87.440] INVALID FOR* Urinary Retention with Incomplete Bladder Empty*INVALID FOR* Hyperlipidemia [E78.5] Encounter Status:Closed by EDDIE PRODUSER on 09/16/18 WOUND CTR HISTORY Observed: 08/12/2018 Status: F Source: [place] 4:54 PM [facility] REPOSITORY [facility] [address] [place], [place] [address] [address] Wound Ctr History AND Physical 08/11/18 1125 MR#: [id number] Acct: [id number] Name: YUN MCDANIEL Rep #: [id number] : 1970 47 From: Sheryl Thao MD PCP: Aurelio Schneiedr MD Status: REG RCR Y Location: WC (1) Ulcer of right lower extremity with fat layer exposed Status: Acute Current Visit: Yes Code(s): L97.912 - Non- pressure chronic ulcer of unspecified part of right lower leg with fat layer exposed (2) Spina bifida Status: Acute Current Visit: Yes Code(s): Q05.9 - Spina bifida, unspecified (3) Paraplegia Status: Acute Current Visit: Yes Code(s): G82.20 - Paraplegia, unspecified History of Present Illness Date of Service: 08/11/18 Chief Complaint: R lower extremity ulcer. History of Wound: Ms. Mcdaniel is a pleasent 47 year old with PMH as stated above who presents to the wound center witha 3 week history of R Lower extremity ulcer. Unsure about the origin however, it was notd by her group care worker about 3 weeks ago. She has been applying antibiotic ointment daily without significant improvement. She otherwise feels well. Past Medical History Allergies/Adverse Reactions: Allergies No Known Allergies Allergy (Verified 08/11/18 09:55) Home Medications: Ambulatory Orders Medication Instructions Recorded Smoking Status: Never smoker Review of Systems Constitutional: Denies: Anorexia, Chills, Fever Eyes: Denies: Blurred vision, Pain HEENT: Denies: Difficulty Swallowing Cardiovascular: Denies: Chest Pain, Chest Tightness Respiratory: Denies: Cough, Hemoptysis Gastrointestinal: Denies: Abdominal Pain, Hematemesis, Vomiting Skin: Denies: Jaundice - Physical Exam Vital Signs Temp Pulse Resp BP 99.6 F H 88 16 101/67 08/11/18 09:31 08/11/18 09:31 08/11/18 09:31 08/11/18 09:31 General: Alert, Oriented x3, Cooperative, No apparent distress HEENT: Atraumatic Oral: Moist Mucosa Neck: Supple Lungs: Normal air movement Cardiovascular: Regular rate, Regular Rhythm Abdomen: Soft Extremities: No cyanosis Skin: Ulcer/ Wound Wound Measurements and Assessment WC - Nurse 1 - General Ulcer Measurement Start: 08/11/18 09:26 Freq: Status: Active Protocol: Activity Type Activity Date Activity User E-Sign Co-Sign Detail Recorded Client Recorded Date Recorded By Document 08/11/18 09:31 DL [id number] 08/11/18 09:50 DL Wound Center Nurse 1 [Ulcer Assessment] #1 R Post LE -Current Size (cm) - Length 1 -Current Size (cm) - Width 1 WC - Nurse 2 - General Ulcer CM Notes Start: 08/11/18 09:26 Freq: Status: Active Protocol: Activity Type Activity Date Activity User E-Sign Co-Sign Detail Recorded Client Recorded Date Recorded By Document 08/11/18 10:09 MW [id number] 08/11/18 10:16 MW Neurological: Cranial nerves II-XII grossly intact Psych/Mental Status: Normal Affect Debridement Note Post-Debridement Measurements/Treatment - Nurse 2 - General Ulcer CM Notes Start: 08/11/18 09:26 Freq: Status: Active Protocol: Activity Type Activity Date Activity User E-Sign Co-Sign Detail Recorded Client Recorded Date Recorded By Document 08/11/18 10:09 MW [id number] 08/11/18 10:16 MW Wound Center Nurse 2 #1 R Post LE -Time 10:09 -Correct Patient Yes -Correct Side, Site, Position Yes Wound debrided: Right lower extremity ( Posterior ) Wound Grade/Stage: Stage II Type of Debridement: Excisional debridement Anesthesia Used: 4% Lidocaine Solution Depth: Down to and including healthy tissue, in the subcutaneous layer Percentage of wound debrided: 100 Instrument Used: 3mm curette Tissue Removed: Slough and devitalized tissue Severity: Fat Layer Exposed Amount of bleeding with debridement: Mild Bleeding Controlled with: Pressure Patient tolerated procedure well Assessment/Plan Active Problems Spina bifida (Acute) Ulcer of right lower extremity with fat layer exposed (Acute) Paraplegia (Acute) Assessment: Right lower extremity ulcer with fat layer exposed, poor healing. Plan: Debridement done as documenetd above, procedure was well tolerated. Cultures taken and blood work also ordered including preablbumin. Pomogran daily with adaptic over top. Increased protein intake recommended. All her questions were answered and she was advised to call with any further concerns. Follow up in 1 week. 08/12/18 [id number] <Electronically signed by Sheryl Thao MD> Date Sheryl Thao MD CC: Signed CBC W/DIFF, AUTOMATED Collected: 08/11/2018 Status: F Source: [place] 10:52 AM [facility] REPOSITORY Order Comment: FAX RESULTS TO @[id number] TYPE CODE TESTS RESULT OUT OF RANGE REFERENCE UNITS LAB L100.1000 4.4-11.0 K/mm3 Normal WBC 6.7 LAB L100.1200 4.2-5.4 M/mm3 Normal RBC 5.03 LAB L100.1300 12.0-15.0 g/dl High HGB 15.1 LAB L100.1400 37-47 % Normal HCT 46.6 LAB L100.1500 81-99 fL Normal MCV 92.6 LAB L100.1600 27.0-32.0 pg Normal MCH 30.0 LAB L100.1700 32-36 g/gl Normal MCHC 32.4 LAB L100.1810 11.6-14.6 % Normal RDW CV 12.7 LAB L100.1820 35.1-43.9 fl Normal RDW SD 42.4 LAB L100.1900 150-450 K/mm3 Normal PLT 286 LAB L100.2000 6.2-12.0 fl Normal MPV 9.1 LAB L100.2100 47-70 % High NEUT% 71.2 LAB L100.2200 19-41 % Normal LY% 19.2 LAB L100.2300 0-10 % Normal MONO% 6.2 LAB L100.2400 0-5 % Normal EO% 2.6 LAB L100.2500 0-1 % Normal BASO% 0.6 LAB L100.2550 0.0-0.9 % Normal IM GRAN % 0.200 Result Comment: IG% - Immature Granulocytes (promyelocytes, myelocytes and metamyelocytes) > 1% indicates that a LEFT SHIFT is Present. LAB L100.2620 2.0-7.7 X10 3/uL Normal Absolute Neut 4.8 LAB L100.2720 0.83-4.51 X10 3/ul Normal Absolute Lymph 1.28 Performed By: #### L100.0100 #### [facility] [address] [place], [address] COMPREHENSIVE METABOLIC Collected: 08/11/2018 Status: F Source: [place] 10:52 AM [facility] REPOSITORY Order Comment: FAX RESULTS TO @[id number] TYPE CODE TESTS RESULT OUT OF RANGE REFERENCE UNITS LAB L501.0100 74-106 mg/dL Low GLU 73 Result Comment: Please note revised GLUCOSE reference range effective 2017. LAB L501.1000 7-18 mg/dL Normal BUN 11 LAB L501.1100 0.55-1.02 mg/dL Low CREAT,SERUM 0.46 Result Comment: The validity of the calculated GFR AND GFRAA in patients over 70 years has not been determined. Clinical correlation is essential. LAB L501.1110 >60 mL/min Normal EST GFR 155 Result Comment: Non- GFR Calc LAB L501.1115 >60 mL/min Normal EST GFR - AA 188 Result Comment: GFR Calc LAB L501.1255 ml/min Normal Estimated CRCL 98.94 LAB L501.1300 10-20 RATIO High BUN/CRE 24.0 LAB L501.1500 6.4-8. g/dL Normal 2 T PROT 7.9 LAB L501.1800 3.2-5. g/dL Normal 0 ALB 3.9 LAB L501.1950 2.2-4. g/dL Normal 2 GLOB 4.0 LAB L501.2000 0.9-2. RATIO Normal 4 A/G 1.0 LAB L501.2200 8.5-10 mg/dL Normal .1 CA 9.3 LAB L501.4100 15-37 U/L Low AST 14 LAB L501.4305 45-117 U/L Normal ALK P 67 LAB L501.4405 13-56 U/L Normal ALT 21 LAB L501.4600 0.20-1 mg/dL Normal .00 T BILI 0.50 LAB L501.5300 136-14 mmol/L Normal 5 NA 144 LAB L501.5600 3.5-5. mmol/L Normal 1 K 4.0 LAB L501.5900 98-107 mmol/L Normal CL 107 LAB L501.6100 21.0-3 mmol/L Normal 2.0 CO2 28.0 LAB L501.6200 5-15 Normal GAP 9 Performed By: #### L500.4050, L506.0500 #### [facility] [address] [facility] [place], [place], [address] PREALBUMIN Collected: 08/11/2018 Status: F Source: [place] 10:52 AM [facility] REPOSITORY Order Comment: FAX RESULTS TO @[id number] TYPE CODE TESTS RESULT OUT OF RANGE REFERENCE UNITS LAB L506.0500 20.0-40.0 mg/dL Normal PREALBUMIN 21.1 Performed By: #### L500.4050, L506.0500 #### [facility] [address] [facility]. [place], [place], [address] PROGRESS Observed: 08/03/2018 Status: COMPLETED Source: [place] 10:25 AM [facility] REPOSITORY HNO ID: [id number] Author: Dann (Language Translator) Podlogar Service: (none) Author Type: Nurse Practitioner Type: Progress Notes Filed: 08/03/2018 11:47 AM Note Text: 08/03/2018 Patient presents with: Wound Check: open sore on posterior right leg noted at the end on May. Has been treating it with triple antibiotic oint SUBJECTIVE: This is a 47 year old that is here today for Above Complaints. First noticed in May started out as scaly patch that caregiver noticed during bathing.Caregiver and patient unsure what happened. Patient is paralyzed from breasts down and can not feel. Slowly developed into open wound. Caregiver has been using bacitracin ointment and covering with a bandage. Denies hx of diabetes, other open wounds,fever, chills, red streaking, redness, swelling, or drainage. PAST MEDICAL HISTORY Diagnosis Date - Anxiety, dissociative and somatoform disorders ANXIETY - Depressive disorder, not elsewhere classified Seeing psych-Dr. 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 MEDICATIONS Current Outpatient Prescriptions: busPIRone (BUSPAR) 5 mg tablet Take 5 mg by mouth twice daily. escitalopram oxalate (LEXAPRO) 10 mg tablet Take 10 mg by mouth once daily. loratadine (CLARITIN) 10 mg tablet Take 1 tablet by mouth once daily. diphenhydrAMINE HCl (BENADRYL MAXIMUM STRENGTH) spray Apply 1 application to affected area as needed. MELATONIN 3 MG TAB one tablet at bedtime THERAPEUTIC MULTIVITAMIN TAB Take one(1) tablet daily. ACETAMINOPHEN 325 MG TAB PRN Diaper,Brief, Adult,Disposable misc Use as needed.(Q05.7) Spina bifida of lumbar region (HCC) (R15.1) Fecal soiling Catheter (SELF-CATHETER, FEMALE) 14 Fr misc Use one catheter daily, or more often as needed Underpads 30 X 30 pads Washable underpads: Use daily and as needed. No current facility-administered medications for this visit. Medications and allergies reviewed by this provider. SOCIAL HISTORY Social History Marital status: Single Spouse name: Years of education: Number of children: 0 Occupational History Occupation Employer Comment [employer] Social History Main Topics Smoking status: Never Smoker Smokeless tobacco: Never Used Alcohol use: No Drug use: No Sexual activity: No Comment: never SA REVIEW OF SYSTEMS All other reviewed and negative other than HPI. OBJECTIVE: BP 100/56 Pulse 84 Temp 36.4 ?C (97.5 ?F) (Tympanic) Resp 16 LMP 07/20/2018 (Approximate) . Vital signs reviewed by this provider. APPEARANCE Well appearing, alert, in no acute distress, well-hydrated, well nourished. HEART RRR with normal S1 and S2, no murmurs, no gallops, no JVD appreciated LUNG clear to auscultation EXTREMITIES No deformities, No skin discoloration, No edema and Normal pulses bilaterally. SKIN: 3 cm x 2 cm open wound with whitish center. No drainage. No surrounding erythema, warmth, or swelling 47 year old female here for INACTIVATED INFLUENZA VACCINE. Season Patient is identified by name and date of : Yes [] CONTRAINDICATIONS color enhanced section Age less than 6 months? No Allergy to eggs, chicken, chicken feathers, or chicken dander? No Allergy to thimerosal (a preservative) or formaldehyde? No History of severe reaction to any vaccine component or a previous dose of influenza vaccination? No History of Guillain-Rochester Syndrome within 6 weeks after a previous influenza vaccine? No Current moderate or severe illness? No Current temperature greater or equal to 100.4F? No History of Bone Marrow Transplant in past 6 months or solid organ transplant in the past 3 months ? No [] VERIFICATION color enhanced section Was the answer Yes for any of the above contraindications? No contraindications present. Acceptable to proceed with vaccine. Patient/guardian agrees the above answers are true to the best of their knowledge? Yes Flu vaccine information sheet given? Yes See immunization activity in [facility] for details of immunizations adminstered today. Patient age: [age] year old For The 7940-0864 Flu Season 6-35 months old: Fluzone 0.25 ml - IM (Preservative Free) 3 years of age: Fluzone 0.5 ml - IM (Preservative Free) 3 years and older: Fluzone 0.5 ml- IM-(with Preservatives) 65+ years old: Fluzone High-Dose 0.5 ml - IM (Preservative Free) REMEMBER: If patient is less than 9 years of age and this is the first vaccine of Influenza to be received in any flu season, they should receive a second dose in one months time. ASSESSMENT/PLAN: 1. Wound healing, delayed - ICD9: 879.9, ICD10: T14.8XXD (primary diagnosis) - consult faxed to [facility] - no red flag exam findings - red flag symptoms discussed, patient and caregiver verbalize understanding - follow-up with discussed symptoms, to ER with red flag symptoms. 2. Need for vaccination - ICD9: V05.9, ICD10: Z23 - INFLUENZA VACCINE QUADRIVALENT AGE 3 YRS PLUS + IM Dann Cavanaugh APRN.CNP Prescription instructions reviewed with patient as applicable. Patient advised if symptoms do not improve or if symptoms worsen sooner, to contact their primary care physician. Potential red flag symptoms discussed with the patient. Reviewed appropriate action plan to take if red flag symptoms occur. Patient agreeable to treatment plan. CNOV Observed: 08/03/2018 Status: COMPLETED Source: [place] 10:20 AM [facility] REPOSITORY Office Visit (FAMPWS) YUN MCDANIEL ([id number]) 1970 F Date Time Provider Department 08/03/18 10:20 AM DANN CAVANAUGH (PATO) ELIZABETH During your visit today, we recorded the following information about you: Temperature Pulse Respiration Blood pressure 97.5 degrees 84/minute 16/minute 100/56 Last Period 07/20/18 Dann Cavanaugh APRN.CNP 08/03/2018 11:47 AM Signed 08/03/2018 Patient presents with: Wound Check: open sore on posterior right leg noted at the end on May. Has been treating it with triple antibiotic oint SUBJECTIVE: This is a 47 year old that is here today for Above Complaints. First noticed in May started out as scaly patch that caregiver noticed during bathing.Caregiver and patient unsure what happened. Patient is paralyzed from breasts down and can not feel. Slowly developed into open wound. Caregiver has been using bacitracin ointment and covering with a bandage. Denies hx of diabetes, other open wounds,fever, chills, red streaking, redness, swelling, or drainage. PAST MEDICAL HISTORY Diagnosis Date - Anxiety, dissociative and somatoform disorders ANXIETY - Depressive disorder, not elsewhere classified Seeing psych-Dr. 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 MEDICATIONS Current Outpatient Prescriptions: busPIRone (BUSPAR) 5 mg tablet Take 5 mg by mouth twice daily. escitalopram oxalate (LEXAPRO) 10 mg tablet Take 10 mg by mouth once daily. loratadine (CLARITIN) 10 mg tablet Take 1 tablet by mouth once daily. diphenhydrAMINE HCl (BENADRYL MAXIMUM STRENGTH) spray Apply 1 application to affected area as needed. MELATONIN 3 MG TAB one tablet at bedtime THERAPEUTIC MULTIVITAMIN TAB Take one(1) tablet daily. ACETAMINOPHEN 325 MG TAB PRN Diaper,Brief, Adult,Disposable misc Use as needed.(Q05.7) Spina bifida of lumbar region (HCC) (R15.1) Fecal soiling Catheter (SELF-CATHETER, FEMALE) 14 Fr misc Use one catheter daily, or more often as needed Underpads 30 X 30 pads Washable underpads: Use daily and as needed. No current facility-administered medications for this visit. Medications and allergies reviewed by this provider. SOCIAL HISTORY Social History Marital status: Single Spouse name: Years of education: Number of children: 0 Occupational History Occupation Employer Comment [employer] Social History Main Topics Smoking status: Never Smoker Smokeless tobacco: Never Used Alcohol use: No Drug use: No Sexual activity: No Comment: never SA REVIEW OF SYSTEMS All other reviewed and negative other than HPI. OBJECTIVE: BP 100/56 Pulse 84 Temp 36.4 ?C (97.5 ?F) (Tympanic) Resp 16 LMP 07/20/2018 (Approximate) . Vital signs reviewed by this provider. APPEARANCE Well appearing, alert, in no acute distress, well- hydrated, well nourished. HEART RRR with normal S1 and S2, no murmurs, no gallops, no JVD appreciated LUNG clear to auscultation EXTREMITIES No deformities, No skin discoloration, No edema and Normal pulses bilaterally. SKIN: 3 cm x 2 cm open wound with whitish center. No drainage. No surrounding erythema, warmth, or swelling 47 year old female here for INACTIVATED INFLUENZA VACCINE. Season Patient is identified by name and date of : Yes [] CONTRAINDICATIONS color enhanced section Age less than 6 months? No Allergy to eggs, chicken, chicken feathers, or chicken dander? No Allergy to thimerosal (a preservative) or formaldehyde? No History of severe reaction to any vaccine component or a previous dose of influenza vaccination? No History of Guillain-Rochester Syndrome within 6 weeks after a previous influenza vaccine? No Current moderate or severe illness? No Current temperature greater or equal to 100.4F? No History of Bone Marrow Transplant in past 6 months or solid organ transplant in the past 3 months ? No [] VERIFICATION color enhanced section Was the answer Yes for any of the above contraindications? No contraindications present. Acceptable to proceed with vaccine. Patient/guardian agrees the above answers are true to the best of their knowledge? Yes Flu vaccine information sheet given? Yes See immunization activity in [facility] for details of immunizations adminstered today. Patient age: [age] year old For The Flu Season 6-35 months old: Fluzone 0.25 ml - IM (Preservative Free) 3 years of age: Fluzone 0.5 ml - IM (Preservative Free) 3 years and older: Fluzone 0.5 ml- IM-(with Preservatives) 65+ years old: Fluzone High-Dose 0.5 ml - IM (Preservative Free) REMEMBER: If patient is less than 9 years of age and this is the first vaccine of Influenza to be received in any flu season, they should receive a second dose in one months time. ASSESSMENT/PLAN: 1. Wound healing, delayed - ICD9: 879.9, ICD10: T14.8XXD (primary diagnosis) - consult faxed to [facility] - no red flag exam findings - red flag symptoms discussed, patient and caregiver verbalize understanding - follow-up with discussed symptoms, to ER with red flag symptoms. 2. Need for vaccination - ICD9: V05.9, ICD10: Z23 - INFLUENZA VACCINE QUADRIVALENT AGE 3 YRS PLUS + IM Dann DowninglogarERICKA.WAX MOLDER Prescription instructions reviewed with patient as applicable. Patient advised if symptoms do not improve or if symptoms worsen sooner, to contact their primary care physician. Potential red flag symptoms discussed with the patient. Reviewed appropriate action plan to take if red flag symptoms occur. Patient agreeable to treatment plan. Dann Cavanaugh APRN.CNP 08/03/2018 10:44 AM Signed Wound care will contact you for appointment. Continue to keep clean and covered Return to office if have fever, chills, surrounding redness, increased swelling or drainage If you develop red streaking go to ER Referring Provider: SELF [200] Allergies As of Date: 08/03/2018 (No Known Allergies) Date Reviewed: 08/03/2018 Reviewed by: Emy Ellis LPN - Fully Assessed Reason for Visit: Wound Check [133] Cmt: open sore on posterior right leg noted at the end on May. Has been treating it with triple antibiotic oint Imm/Inj [58] Cmt: Flu Vaccine Reason For Visit History Recorded Primary Visit Diagnosis:Wound healing, delayed [T14.8XXD] Other Visit Diagnosis:Need for vaccination [Z23] Order(s):INFLUENZA VACCINE QUADRIVALENT AGE 3 YRS PLUS + IM [[id number]] Order #: [id number] Prescriptions as of 08/03/2018 Sig: BUSPIRONE 5 MG TABLET Take 5 mg by mouth twice christel* ESCITALOPRAM 10 MG TABLET Take 10 mg by mouth once christel* LORATADINE 10 MG TABLET Take 1 tablet by mouth once d* DIPHENHYDRAMINE 2 % TOPICAL S* Apply 1 application to affect* MELATONIN 3 MG TABLET one tablet at bedtime THERAPEUTIC MULTIVITAMIN TABL* Take one(1) tablet daily. ACETAMINOPHEN 325 MG TABLET PRN DIAPER,BRIEF,ADULT,DISPOSABLE Use as needed.(Q05.7) Spina b* CATHETER 14 FR Use one catheter daily, or mo* UNDERPADS 30 X 30 Washable underpads: Use christel* Problem List As Of Date 08/03/2018 Noted Resolved Spina bifida of lumbar region (HCC) [Q05.7] INVALID FOR* INGROWING NAIL [L60.0] INVALID FOR*08/17/2006 DEPRESSIVE DISORDER NEC [F32.9] INVALID FOR* UNSOCIAL AGGRESS-UNSPEC [F91.1] INVALID FOR* ABNORMAL PULMONARY FUNC STUDY [R94.2] INVALID FOR* More... KYPHOSIS IN OTHER DIS [M40.10] INVALID FOR* SCOLIOSIS IN OTHER DIS [M41.50] INVALID FOR* History of Urinary Tract Infection [Z87.440] INVALID FOR* Urinary Retention with Incomplete Bladder Empty*INVALID FOR* Hyperlipidemia [E78.5] Other instructions from your clinician: Wound care will contact you for appointment. Continue to keep clean and covered Return to office if have fever, chills, surrounding redness, increased swelling or drainage If you develop red streaking go to ER Medications Discontinued During This Encounter busPIRone 10 mg tablet 0 07/19/2013 08/03/2018 Class: Historical Med Route: ORAL Sig: Take 5 mg by mouth twice daily. Disc: Reason for discontinue is not on file. citalopram (CELEXA) 20 mg ORAL tablet 45 t* 5 11/24/2011 08/03/2018 Route: ORAL Sig: Take 1.5 tablets by mouth once daily. Disc: Reason for discontinue is not on file. Encounter Status:Closed by JAYANTLOGDANN FARLEY CNP on 08/03/18 ALLERGIES ALLERGIES DATE TYPE / CODE NAME / CODE REACTION SEVERITY SOURCE 08/11/2018 Drug No Known Unknown [facility] [facility] Allergy/416 Allergies/V32064 [facility] 700594(SNOM 0388(RXNORM) Repository ED CT) Drug NO KNOWN [facility] Class/77728 ALLERGIES [facility] 1003(SNOMED Repository CT) ENCOUNTERS ENCOUNTERS ADMIT/DISCHARGE ACCOUNT ADMITTING ENCOUNTER LOCATION SOURCE NUMBER CLASS 12/09/2018 [id number] [facility] 11/16/2018/11/28/20 [id number] Ambulatory BMSBuilding:[address] Repository 11/16/2018/11/28/20 [id number] [address] [facility] Repository 11/09/2018 [id number] Ambulatory [facility]MSBuilding:[facility] Repository 10/26/2018 [id number] Ambulatory BMSBuilding:[facility] Repository 10/26/2018/10/28/20 [id number] [address] [facility] [address]: Repository 10/12/2018 [id number] Ambulatory BMSBuilding:[facility] Repository 10/05/2018 [id number] Ambulatory BMSBuilding:[facility] Repository 09/28/2018/09/28/20 [id number] [address] [facility] [address] Repository 09/28/2018 [id number] Ambulatory BMSBuilding:[facility] Repository 09/08/2018 [id number] Ambulatory BMSBuilding:[facility] Repository 09/02/2018/09/05/20 [id number] Ambulatory [address] Repository 08/31/2018 [id number] Ambulatory BMSBuilding:[facility] Repository 08/25/2018/08/28/20 [id number] [facility] [address] [facility]: Repository 08/25/2018 [id number] Ambulatory BMSBuilding:[facility] Repository 08/11/2018 [id number] Ambulatory BMSBuilding:[facility] Repository 08/03/2018/08/08/20 [id number] Ambulatory [address] Repository PAYERS PAYERS ENCOUNTER GUARANTOR PAYER SUBSCRIBER SOURCE 12/09/2018 YUN [place] Primary NOT GIVENUNK [place] [id number] N Insurance:SELF PAY [facility] Number: Effective Repository 35593Jap: (330) Date:2018-11-29 [id number] () 11/16/2018 YUN S Primary YUN [place] [id number] N Insurance:MEDICARE SHORTDOB: Community [place] PART A [facility] [id number] [place] [facility] [place] [facility] Repository [address]Fyw: (330) [id number] [phone] () Date:2018-11-09 11/16/2018 Secondary YUN S [place] Insurance:MEDICAIDPol SHORTDOB: [facility] icy Number: [id number] [id number] Repository Date:2018-11-09 11/16/2018 Tertiary NOT GIVENUNK [place] Insurance:SELF PAY [facility] Number: Effective Repository Date:2018-11-16 11/16/2018 YUN S Primary NOT GIVENUNK [place] [id number] N Insurance:SELF PA[place] [facility] Number: Effective Repository [phone]: (330) Date:2018-10-29 [phone] () 11/09/2018 YUN S Primary YUN S [place] [id number] N Insurance:MEDICARE SHORTDOB: Community [place] PART A [facility] [id number] [place] [facility] Repository [address]Wfp: (330) [id number] [phone] () Date:2018-11-09 11/09/2018 Secondary YUN S [place] Insurance:MEDICAIDPol SHORTDOB: Community icy Number: [id number] [id number] Repository Date:2018-11-09 11/09/2018 Tertiary NOT GIVENUNK [place] Insurance:SELF PAY [facility] Number: Effective Repository Date:2018-11-09 10/26/2018 YUN S Primary YUN S [place] [id number] N Insurance:MEDICARE SHORTDOB: Community [place] PART A [facility] [id number] [place] [facility] Repository [address]Dqg: 330 [id number] [phone] (HP) Date:2018-10-26 10/26/2018 Secondary YUN S [place] Insurance:MEDICAIDPol SHORTDOB: Community ic Number: [id number] [id number] Repository Date:2018-10-26 10/26/2018 Tertiary NOT GIVENUNK [place] Insurance:SELF PAY [facility] Number: Effective Repository Date:2018-10-26 10/26/2018 YUN S Primary NOT GIVENUNK [place] [id number] N Insurance:SELF PAY [place] Number: Effective Repository [phone]: (330) Date:2018-09-29 [phone] () 10/12/2018 YUN S Primary YUN S [place] [id number] N Insurance:MEDICARE SHORTDOB: Community [place] PART A [facility] [id number] [place] [facility] Repository [address]Jgr: 330 [id number] [phone] () Date:2018-10-05 10/12/2018 Secondary YUN S [place] Insurance:MEDICAIDPol SHORTDOB: [facility] Number: [id number] Hospital [id number] Repository Date:2018-10-05 10/12/2018 Tertiary NOT GIVENUNK [place] Insurance:SELF PAY [facility] Number: Effective Repository Date:2018-10-12 10/05/2018 YUN S Primary YUN S [place] [id number] N Insurance:MEDICARE SHORTDOB: Community [place] PART A [facility] [id number] [place] [place] Number: Repository [address]Hzq: 330 [id number] [phone] () Date:2018-10-05 10/05/2018 Secondary YUN S [place] Insurance:MEDICAIDPol SHORTDOB: [facility] ic Number: [id number] Hospital [id number] Repository Date:2018-10-05 10/05/2018 Tertiary NOT GIVENUNK [place] Insurance:SELF PAY [facility] Effective Repository Date:2018-10-05 09/28/2018 YUN [place] Primary UYN Hamilton [place] [id number] N Insurance:MEDICAIDPol SHORTDOB: Community [id number] [id number] Repository 618[address]Bhn: (330) Date:2018-08-03 [phone] () 09/28/2018 Secondary NOT GIVENUNK [place] Insurance:SELF PAY [facility] Number: Effective Repository Date:2018-08-29 09/28/2018 YUN S Primary YUN [place] [id number] N Insurance:MEDICARE SHORTDOB: Community [place] PART A [facility] [id number] Repository [address]Nzl: 330 [id number] [phone] () Date:2018-09-28 09/28/2018 Secondary YUN S [place] Insurance:MEDICAIDPol SHORTDOB: Community ic Number: [id number] [facility] [id number] Repository Date:2018-08-03 09/28/2018 Tertiary NOT GIVENUNK [place] Insurance:SELF PAY [facility] Number: Effective Repository Date:2018-09-28 09/08/2018 YUN S Primary YUN Hamilton [place] [id number] N Insurance:MEDICARE SHORTUNK Community [place] PART A [facility], Number: Repository [place] [address]Rmt: [id number] Date:2018-08-25 () 09/08/2018 Secondary YUN S [place] Insurance:MEDICAIDPol SHORTUNK Community ic Number: [facility] [id number] Repository Date:2018-08-03 09/08/2018 Tertiary NOT GIVENUNK [place] Insurance:SELF PAY [facility] Number: Effective Repository Date:2018-09-08 08/31/2018 YUN S Primary YUN Hamilton [place] [id number] N Insurance:MEDICARE SHORTUNK Community [place] PART A [facility], Number: Repository [place] [address]Usy: [id number] Date:2018-08-25 () 08/31/2018 Secondary Y[place] S [place] Insurance:MEDICAIDPol SHORTUNK Community icy Number: [facility] [id number] Repository Date:2018-08-03 08/31/2018 Tertiary NOT GIVENUNK [place] Insurance:SELF PAY [facility] Number: Effective Repository Date:2018-08-31 08/25/2018 YUN S Primary YUN S [place] [id number] N Insurance:MEDICARE SHORTDOB: Community [place] PART A [facility] [id number] Number[place] Repository [address]Ccy: 330 [id number] [phone] () Date:2018-08-03 08/25/2018 Secondary YUN S [place] Insurance:MEDICAIDPol SHORTDOB: [facility] icy Number: [id number] Hospital [id number] Repository Date:2018-08-03 08/25/2018 Tertiary NOT GIVENUNK [place] Insurance:SELF PAY [facility] Number: Effective Repository Date:2018-08-03 08/25/2018 UYN S Primary YUN [place] [id number] N Insurance:MEDICARE SHORTUNK Community [place] PART A [facility], Number: Repository [place] [address]Xcr: [id number] Date:2018-08-25 () 08/25/2018 Secondary YUN S [place] Insurance:MEDICAIDPol SHORTUNK [facility] Number: [facility] [id number] Repository Date:2018-08-03 08/25/2018 Tertiary NOT GIVENUNK [place] Insurance:SELF PAY [facility] Number: Effective Repository Date:2018-08-25 08/11/2018 YUN S Primary YUN S [place] [id number] N Insurance:MEDICARE SHORTUNK Community [place] PART A [facility], Number: Repository [place] [address]Hyg: [id number] Date:2018-08-11 () 08/11/2018 Secondary YUN S [place] Insurance:MEDICAIDPol SHORTUNK Community icy Number: [facility] [id number] Repository Date:2018-08-03 08/11/2018 Tertiary [place] Insurance:SELF PAY [facility] Number: Effective Repository Date:2018-08-11
== END 2018-11-28 23:59 ==
LOC: WC 09:45
PROVIDERS: Family Provider Family Medicine; PCP Family Medicine; Referring Provider Internal Medicine; Visit Provider Internal Medicine
DX: L97.812 Non-pressure chronic ulcer of other part of right lower leg with fat layer exposed (principal); G82.20 Paraplegia, unspecified; Q05.9 Spina bifida, unspecified
CPT/HCPCS: 11042; 99213; G0463